=== PATIENT | female | born 1995 | race Caucasian/White ===

== ENCOUNTER 2022-03-08 07:35 | Outpatient (CLI) | payer OTHER, SELFPAY ==
[2022-03-09 09:57] LABS: Hematocrit 48.9 % (37.0-47.0); Hemoglobin 14.7 g/dL (12.0-15.0); Mean Corpuscular HGB Conc 30.1 g/dl (32-36); Mean Corpuscular Hemoglobin 29.8 pg (26-34); Mean Platelet Volume 10.8 fl (7.4-10.4); Platelet Count Result 307 k/mm3 (150-375); Red Blood Count 4.94 M/mm3 (4.2-5.4); Red Cell Distribution Width 13.6 % (11.5-14.5); White Blood Count 5.1 K/mm3 (4.5-10.0)
[2022-03-09 10:10] LABS: Alanine Aminotransferase 14 U/L (6-35); Albumin Level 4.8 g/dL (3.5-5.1); Alkaline Phosphatase 65 U/L (38-126); Anion Gap 8 mmol/L (8-16); Aspartate Amino Transferase 23 U/L (14-36); Bilirubin,Total 0.6 mg/dL (0.2-1.3); Blood Urea Nitrogen 14 mg/dL (7-17); Calcium 9.4 mg/dL (8.4-10.2); Carbon Dioxide 24 mmol/L (22-30); Chloride 106 mmol/L (98-107); Cholesterol 165 mg/dL (0-200); Estimated Glomerular Filt Rate > 60; Glucose 90 mg/dL (65-110); HDL Direct 71 mg/dL; Potassium 4.1 mmol/L (3.4-5.0); Sodium 138 mmol/L (137-145); Triglycerides 68 mg/dL (<150)
[2022-03-09 10:20] LABS: LDL Cholesterol Direct 71 mg/dL
[2022-03-09 15:47] LABS: Hemoglobin A1C 4.9 % (<5.7)
== END 2022-03-08 07:36 | disposition home or self-care (01) ==
PROVIDERS: PCP Family Medicine; Visit Provider Family Medicine
DX: Z00.00 Encounter for general adult medical examination without abnormal findings (principal); E28.2 Polycystic ovarian syndrome
CPT/HCPCS: 36415; 80053; 80061; 83036; 85027

== ENCOUNTER 2022-03-17 07:43 | Outpatient (CLI) | payer OTHER, SELFPAY ==
[2022-03-17 19:30] LABS: Hematocrit 44.4 % (37.0-47.0); Mean Corpuscular HGB Conc 31.5 g/dl (32-36); Mean Corpuscular Hemoglobin 29.8 pg (26-34); Mean Corpuscular Volume 94.5 fl (80-100); Mean Platelet Volume 11.2 fl (7.4-10.4); Platelet Count Result 268 k/mm3 (150-375); Red Cell Distribution Width 12.8 % (11.5-14.5); White Blood Count 5.2 K/mm3 (4.5-10.0)
[2022-03-22 09:56] LABS: DHEA-Sulfate 208 mcg/dL (18-391)
[2022-03-23 17:27] LABS: Testosterone Free 1.1 pg/mL (0.1-6.4); Testosterone Total 11 ng/dL (2-45)
== END 2022-03-17 07:44 | disposition home or self-care (01) ==
LOC: ANHBWCLAB 07:44
PROVIDERS: PCP Family Medicine; Visit Provider Family Medicine
DX: R71.8 Other abnormality of red blood cells (principal); E28.2 Polycystic ovarian syndrome
CPT/HCPCS: 36415; 82627; 84402; 84403; 85027

== ENCOUNTER 2022-05-05 13:49 | Emergency (ER) | payer OTHER, SELFPAY ==
[2022-05-05 14:06] VITALS: BP 146/93; PULSE 107; RESP 16; TEMP 36.8; O2SAT 100
--- NOTE | 2022-05-05 15:17 | ED.SKABFB ---
HPI - Skin/Abscess/Foreign Bdy General Chief complaint: Skin/Abscess/Foreign Body Stated complaint: rash on arm and leg Time Seen by Provider: 05/05/22 15:17 Source: patient and RN notes reviewed Mode of arrival: ambulatory Limitations: no limitations History of Present Illness HPI narrative: 27-year-old female presents with concern for itchy rash on her left leg and right arm. She reports she noticed the rash on Sunday and it has spread. She reports using [id number] poison contreras remedies without relief. She denies swollen lips, trouble breathing. She denies any known triggers. MD complaint: rash Related Data Allergies Allergy/AdvReac Type Severity Reaction Status Date / Time amoxicillin Allergy Rash/hives Verified 02/27/22 16:03 Review of Systems Review of Systems: CONSTITUTIONAL: Denies malaise, chills, sweats, or fever. EYES: Denies redness, or discharge. ENT: Denies rhinorrhea, congestion, swollen lips, swollen tongue CARDIOVASCULAR: Denies chest pain, palpitations, or edema. RESPIRATORY: Denies cough or dyspnea. GASTROINTESTINAL: Denies abdominal pain, nausea, vomiting SKIN: Reports itchy rash to the left leg, right arm MUSCULOSKELETAL: Denies joint painor myalgia. NEUROLOGIC: Denies headache. All systems reviewed & are unremarkable except as noted in HPI and below PMFSH Family History Family History (Updated 02/27/22 @ 16:14 by Tracey Jacobson MA) Mother Alcohol abuse Hypertension Heart disease Grandparent Alcohol abuse Cancer Diabetes mellitus Social History Social History (Updated 02/27/22 @ 16:18 by Tracey Jacobson MA) Smoking status: Never smoker Alcohol intake: current Alcohol use details: wine Beer on Occasion Substance use: never Substance use type: does not use Gender identity (if verbalized by the patient): Female Sexual Orientation (if Verbalized by the Patient): Straight or Heterosexual Agree to blood products: Yes Comments At time of signature, agree with nursing past medical, surgical, social and family history. There is no relevant family history pertinent to the presenting complaint Exam Narrative: GENERAL: Well-appearing, well-nourished, and in no acute distress. HEAD: Normocephalic, atraumatic. EYES: PERRLA, conjunctivae clear, and EOMI. ENT: Mucous membranes moist. Oropharynx without edema, erythema or lesions. NECK: Supple. No lymphadenopathy CHEST: Clear to auscultation. No respiratory distress. HEART: Regular rate and rhythm. SKIN: Warm, dry. Patches of erythematous papules noted to the posterior left leg and the right arm without vesicles or drainage noted NEURO: Alert and oriented x3. PSYCH: Normal mood and affect Course Course Emergency Course: Patient is aware of diagnosis, understands and agrees to treatment plan. Anticipatory guidance given. Patient agrees to follow-up as directed and is aware of reasons to seek care at the emergency department. Portions of this record may have been created with voice recognition software Level of Care: Express Care Visit Vital Signs Vital signs: Vital Signs Temperature 98.2 F 05/05/22 14:06 Pulse Rate 107 H 05/05/22 14:06 Respiratory Rate 16 05/05/22 14:06 Blood Pressure 146/93 H 05/05/22 14:06 Pulse Oximetry 100 05/05/22 14:06 Oxygen Delivery Room Air 05/05/22 14:06 Temperature 98.2 F 05/05/22 14:06 Pulse Rate 107 H 05/05/22 14:06 Respiratory Rate 16 05/05/22 14:06 Blood Pressure 146/93 H 05/05/22 14:06 Pulse Oximetry 100 05/05/22 14:06 Oxygen Delivery Room Air 05/05/22 14:06 Reviewed. MDM - Skin/Abscess/Foreign Bdy MDM Narrative Medical decision making narrative: Does not appear at this time to be erythema multiforme, bullous, SJS, TEN; no evidence at this time to suggest RMSF, endocarditis or Lyme disease; patient looks well, nontoxic and is tolerating oral intake; no neurologic signs or symptoms; no headache, photophobia or neck pain; afebri
== END 2022-05-05 15:27 | disposition home or self-care (01) ==
PROVIDERS: Emergency Provider Nurse Practitioner; PCP Family Medicine
DX: L25.9 Unspecified contact dermatitis, unspecified cause (principal)
CPT/HCPCS: 96372; 99213; G0463; J0171

== ENCOUNTER 2022-05-10 09:04 | Outpatient (CLI) | payer OTHER, SELFPAY ==
[2022-05-10 17:58] LABS: Hemoglobin A1C 4.9 % (<5.7)
[2022-05-10 18:20] LABS: Erythrocyte Sedimentation Rate 2 mm/hr (0-20)
== END 2022-05-10 09:05 | disposition home or self-care (01) ==
LOC: ANHBWCLAB 09:05
PROVIDERS: PCP Family Medicine; Visit Provider Family Medicine
DX: T14.8XXA Other injury of unspecified body region, initial encounter (principal); R73.09 Other abnormal glucose; I10 Essential (primary) hypertension; R21 Rash and other nonspecific skin eruption
CPT/HCPCS: 36415; 83036; 84443; 85652; 86036; 86038

== ENCOUNTER 2022-06-01 14:29 | Outpatient (CLI) | payer OTHER, SELFPAY ==
--- NOTE | 2022-06-01 14:32 | ECG_ITS ---
Measurements Intervals [facility] Rate: 92 P: 64 GA: 149 QRS: 60 QRSD: 91 T: 44 QT: 329 QTc: 408 Interpretive Statements SINUS RHYTHM BASELINE ARTIFACT POSSIBLE RIGHT VENTRICULAR CONDUCTION DELAY BORDERLINE ECG NO PREVIOUS ECG AVAILABLE FOR COMPARISON Electronically Signed On 06-01-2022 15:21:23 CDT by Candelario Galarza M.D.
== END 2022-06-01 14:30 | disposition home or self-care (01) ==
LOC: CHSCARD 14:31
PROVIDERS: PCP Family Medicine; Visit Provider Internal Medicine Cardiovascular Disease
DX: R00.0 Tachycardia, unspecified (principal)
CPT/HCPCS: 93005

== ENCOUNTER 2022-08-14 07:38 | Outpatient (CLI) | payer OTHER, SELFPAY ==
--- NOTE | ~2022-08-14 | CT_ITS ---
EXAMINATION: CT abdomen pelvis w con INDICATION: Worsening lower abdominal pain, rectal bleeding TECHNIQUE: Computed tomographic images of the abdomen and pelvis were obtained after the administrati on of 100 cc of Omnipaque 350 intravenous contrast. The dose-length product (DLP) was 501.54 mGy-cm. Automated exposure control and iterative reconstruction technique were employed. COMPARISON: None available FINDINGS: The lung bases are clear. The heart size is normal. The liver, spleen, pancreas, gallbladde r, and adrenal glands are normal. The kidneys are unremarkable. No pathologically enlarged abdominal or pelvic lymph nodes are identified. There is no free intraperitoneal gas or evidence of bowel obstr uction. There is a small volume of fluid in the endometrial canal. There is a 13 mm hypoattenuating a orquidea of the cervix. A corpus luteum is noted in the left ovary. The visualized osseous structures are unremarkable. IMPRESSION: 1. No CT correlate identified for rectal bleeding. 2. Fluid in the endometrial canal and hypoattenuating area of the cervix. Assuming negative test, findings likely reflect nabothian cyst and menstrual changes. Consider pelvic ultrasound. Reviewed, dictated and finalized at location A. IMPRESSION: 1. No CT correlate identified for rectal bleeding. 2. Fluid in the endometrial canal and hypoattenuating area of the cervix. Assum ing negative test, findings likely reflect nabothian cyst and menstru al changes. Consider pelvic ultrasound.
[2022-08-14 08:12] LABS: Hematocrit 42.6 % (37.0-47.0); Mean Corpuscular HGB Conc 32.9 g/dl (32-36); Mean Corpuscular Hemoglobin 29.9 pg (26-34); Mean Corpuscular Volume 90.8 fl (80-100); Mean Platelet Volume 10.2 fl (7.4-10.4); Platelet Count Result 306 k/mm3 (150-375); Red Blood Count 4.69 M/mm3 (4.2-5.4); Red Cell Distribution Width 12.2 % (11.5-14.5); White Blood Count 6.7 K/mm3 (4.5-10.0)
[2022-08-14 08:16] LABS: Estimated Glomerular Filt Rate > 60
[2022-08-14 08:23] LABS: Alanine Aminotransferase 17 U/L (6-35); Albumin Level 4.9 g/dL (3.5-5.1); Alkaline Phosphatase 57 U/L (38-126); Anion Gap 10 mmol/L (8-16); Aspartate Amino Transferase 22 U/L (14-36); Bilirubin,Total 0.8 mg/dL (0.2-1.3); Blood Urea Nitrogen 13 mg/dL (7-17); CRP < 0.5 mg/dL (<1.0); Calcium 9.6 mg/dL (8.4-10.2); Carbon Dioxide 23 mmol/L (22-30); Chloride 103 mmol/L (98-107); Estimated Glomerular Filt Rate > 60; Glucose 102 mg/dL (65-110); Potassium 3.9 mmol/L (3.4-5.0); Sodium 136 mmol/L (137-145)
== END 2022-08-14 07:39 | disposition home or self-care (01) ==
PROVIDERS: PCP Family Medicine; Referring Provider Nurse Practitioner; Visit Provider Nurse Practitioner Family
DX: R10.30 Lower abdominal pain, unspecified (principal); K62.89 Other specified diseases of anus and rectum
CPT/HCPCS: 36415; 74177; 80053; 85027; 86140; Q9967

== ENCOUNTER 2022-09-20 10:21 | Day surgery (SDC) | payer OTHER, SELFPAY ==
--- NOTE | 2022-09-14 13:12 | PC.NURSE ---
UNABLE TO GET AHOLD OF PT. MULTIPLE ATTEMPTS WITH VOICE MESSAGES HAVE BEEN LEFT FOR PT REGARDING PREOP INTERVIEW. PT CALLED AFTER HOURS AND LEFT A MESSAGE THAT SHE NEEDED TO BE CALLED EXACTLY AT [facility] . CALLED PT AT [facility] TODAY, NO ANSWER, VOICEMAIL LEFT AGAIN. WILL NOTIFY DR SHELDON OFFICE, UNABLE TO GET AHOLD OF PT.
--- NOTE | 2022-09-15 14:22 | SUR.PREOP ---
PRE-OPERATIVE [address] [address] 1. Report to the Surgery Center Waiting Room, the entrance is the first door on the right after passing through the automatic sliding doors, at time _1130 on date_09/20/22 . OR Time:_1300 . - You and your visitor will be asked to self-screen and do not enter if you have any COVID symptoms. - Two visitors over, age 16 and older, are allowed.? NO children visitors are allowed at this time. - Masking is based on community transmissions levels in [facility].? When the community transmission level is HIGH, masking will be required.? Signage will be posted indicating if masking is required the day of your procedure.? 2. Patients may have clear liquids (water, carbonated beverages, clear teas, apple juice) until 3 hours prior to surgery with a maximum of 20 ounces. - No food from midnight until time of surgery. - Infants may have breast milk until 4 hours before surgery, infant formula 6 hours prior to surgery. - Children will be allowed to drink immediately following surgery. If applicable, please bring a bottle or sippy cup to assist with drinking. Juice, water, soda, and popsicles are readily available. For infants on formula, please bring formula the day of surgery. Pacifiers are allowed. 3. Take the following medications with a SIP of water the morning of surgery: 1.__Lisinopril 2. 3. Medications to discontinue per physician order: 1.__n/a date to discontinue: 4. No make-up, nail namibian, hairspray, perfume, deodorant, or body powder the day of surgery. No jewelry (including any body piercings) or valuables the day of surgery. Please take a shower or bath the night before, or the morning of, surgery with an antibacterial soap. Wear comfortable, loose fitting clothing. Children are encouraged to wear pajamas. - Jewelry must be removed prior to entering the operating room. Rings and piercings that are not removed will be cut off. The center will not accept responsibility for valuables. Please leave all valuables, including medications, at home the day of surgery. 5. When going home after surgery, a licensed rolloff truck driver must drive you home. NO public transportation without another adult. We recommend someone to stay with you, no alcoholic beverages, driving or important decision making for 24 hours after surgery. For pediatric surgeries, we recommend two adults to accompany a child home. (Only one will be allowed into the building with the patient) 6. If you or anyone in your household have experienced Covid symptoms in the past week, please notify your surgeon or surgery center at phone number below for possible testing. 7. Follow any additional instructions given by your physician. Telephone instructions given to:_patient and asked if any additional questions and then verbalized understanding. Patient advised to call surgeon office or the surgery center at [phone] if any additional questions.
[2022-09-15 14:26] VITALS: BMI 28.3
--- NOTE | 2022-09-20 09:43 | P.PNAN_ITS ---
Anes - Initial Pre Proc Eval Procedure: Operation Date: 09/20/22 13:00 Proposed Procedures p Diagnostic Colonoscopy - Ander Gloria MD Date/Time: 09/20/22 09:43 Surgeon: Ander Gloria MD Pre Op Diagnosis: Melena and Rectal Pain Patient Data Age: 27 Gender: F Height: 1.63 m Weight: 74.843 kg Allergies Allergy/AdvReac Type Severity Reaction Status Date / Time amoxicillin Allergy Rash/hives Verified 09/15/22 14:32 Home Medications Medication Instructions Recorded Confirmed Type lisinopril 20 mg tablet 20 mg PO DAILY #90 tabs 07/29/22 09/15/22 Rx prednisone 20 mg tablet 40 mg PO DAILY PRN Menstral period 09/15/22 09/15/22 History Patient hx anesthesia problems: none Family hx anesthesia problems: none Results Review: All pre-operative results and documents have been reviewed as part of the pre- operative evaluation. [facility] Past Medical History Medical History (Updated 09/20/22 @ 09:44 by Jose Alejandro Ervin DO) External bleeding hemorrhoids HTN (hypertension) PCOS (polycystic ovarian syndrome) Surgical History Surgical History (Updated 09/20/22 @ 09:44 by Jose Alejandro Ervin DO) History of Family History Family History Mother Alcohol abuse Hypertension Heart disease Grandparent Alcohol abuse Cancer Diabetes mellitus Social History Social History Smoking status: Never smoker Alcohol intake: current Alcohol use details: socially Substance use: never Substance use type: does not use Living arrangements: with family Gender identity (if verbalized by the patient): Female Sexual Orientation (if Verbalized by the Patient): Straight or Heterosexual Spiritual care concerns: No Agree to blood products: Yes Anes - Eval Final PreProcedure Day of Procedure 09/20/22 09:43 Patient weight: overweight Heart: regular rate and rhythm Lungs: clear to auscultation Airway: Mallampati scale class II Neurological: alert and oriented Last oral intake: >/= 8 hours ASA classification: II Emergent: no Anesthetic plan: proceed Anesthesia type and monitoring: general GIVS and standard monitoring Results Review: All pre-operative results and documents have been reviewed as part of the pre- operative evaluation. Informed Consent: The patient's anesthetic plan and its attendant risks and benefits were discussed with the patient/family/POA. Questions were solicited and answers provided to the satisfaction of the patient/family/POA.
[2022-09-20 10:40] VITALS: BP 127/85; PULSE 117; RESP 20; TEMP 37.1; O2SAT 100
[2022-09-20] MEDS: LACTATED RINGERS 1,000 ML 150 ML IV CONT (11:34)
--- NOTE | 2022-09-20 11:45 | PM.HPGS ---
History of Present Illness History of Present Illness Consent: Risks, benefits, and alternatives have been discussed and questions answered. Patient agrees to proceed with procedure. Chief complaint: Melena and Rectal Pain Narrative: Shira Hudson is a 27 year old female with intermittent rectal pain and blood in stools Review of Systems Constitutional: Constitutional: Denies headache(s) and Denies weakness Eyes: Eyes: Denies blurry vision ENT: Reports Normal hearing present, Denies headache(s) and Denies neck pain Cardiovascular: Cardiovascular: Denies chest pain and Denies dyspnea Respiratory: Respiratory: Denies dyspnea Gastrointestinal: Gastrointestinal: Reports no additional gastrointestinal complaints Genitourinary: Genitourinary: Denies dysuria Musculoskeletal: Musculoskeletal: Denies neck pain Integumentary/Breasts: Skin/Breast: Denies dry skin Neurologic: Reports Normal hearing present, Denies headache(s) and Denies weakness Psychiatric: Psychiatric: Denies anxiety Endocrine: Endocrine: Denies change in body appearance Hematologic/Lymphatic: Hematologic/Lymphatic: Denies easy bleeding Allergic/Immunologic: Allergic/Immunologic: Denies urticaria PMFSH Past Medical History Medical History (Updated 09/20/22 @ 09:44 by Jose Alejandro Ervin DO) External bleeding hemorrhoids HTN (hypertension) PCOS (polycystic ovarian syndrome) Surgical History Surgical History (Updated 09/20/22 @ 09:44 by Jose Alejandro Ervin DO) History of Family History Family History Mother Alcohol abuse Hypertension Heart disease Grandparent Alcohol abuse Cancer Diabetes mellitus Social History Social History Smoking status: Never smoker Alcohol intake: current Alcohol use details: socially Substance use: never Substance use type: does not use Living arrangements: with family Gender identity (if verbalized by the patient): Female Sexual Orientation (if Verbalized by the Patient): Straight or Heterosexual Spiritual care concerns: No Agree to blood products: Yes Meds Home Medications and Allergies Home Medications Medication Instructions Recorded Confirmed Type lisinopril 20 mg tablet 20 mg PO DAILY #90 tabs 07/29/22 09/20/22 Rx prednisone 20 mg tablet 40 mg PO DAILY PRN Menstral period 09/15/22 09/20/22 History Allergies Allergy/AdvReac Type Severity Reaction Status Date / Time amoxicillin Allergy Rash/hives Verified 09/20/22 10:53 Vital Signs Vital Signs - 24 hr 09/20/22 10:40 Temperature 98.7 F Pulse Rate 117 H Respiratory Rate 20 Blood Pressure 127/85 Pulse Oximetry 100 Oxygen Delivery Room Air Exam Const: General: comfortable and no acute distress HENMT: Face/Nose/Sinus: Normal nares present Eyes: General: appearance normal, both eyes and all related structures Neck: Neck: no JVD Resp: Auscultation: clear to auscultation bilaterally Cardio: Rate: regular rate Rhythm: regular rhythm GI: Inspection: non-distended GI Palp: Yes Soft to palpation Skin: General skin exam: normal color Neuro: General: gait normal Speech: normal speech Extrem: General: normal to inspection Psych: Mental Status: mental status grossly normal Assessment and Plan Assessment and plan (1) Rectal pain: Code(s): K62.89 - Other specified diseases of anus and rectum Status: Acute Assessment and Plan: colonoscopy, probably perianal ? anal fissure
[2022-09-20 12:10] VITALS: BP 92/66; PULSE 97; RESP 16; O2SAT 100
[2022-09-20 12:20] VITALS: BP 105/65; PULSE 94; RESP 16; O2SAT 99
[2022-09-20 12:30] VITALS: BP 98/68; PULSE 98; RESP 16
--- NOTE | 2022-09-20 12:31 | SUR.PHASEII ---
PT AWAKE AND ALERT. DENIES PAIN. DRINKING WATER.
--- NOTE | 2022-09-20 12:53 | SUR.PHASEII ---
1245; PT AND SPOUSE ASKING TO SPEAK TO DR SERVIN. DR SERVIN INTO ROOM.
--- NOTE | 2022-09-20 13:22 | WPDANESPN ---
Anes - Prog Note Post-Op Date/Time: 09/20/22 13:22 Cardiovascular status: normal Respiratory status: normal Airway patency: baseline Mental status: baseline Post-Op hydration status: normal Vital Signs: Last Vital Signs Temp 37.1 C 09/20/22 10:40 Pulse 98 09/20/22 12:30 Resp 16 09/20/22 12:30 BP 98/68 L 09/20/22 12:30 Pulse Ox 99 09/20/22 12:20 O2 Del Method Room Air 09/20/22 12:30 Pain Score (VAS): 0 I/O: Intake & Output 09/19/22 09/20/22 09/20/22 23:59 07:59 15:59 Intake Total 400 Balance 400 Post-procedural complaints: none Patient Feedback: Patient satisfied with anesthetic care. Other Findings: Patient vital signs back to baseline. Patient denies nausea and vomiting. Patient's pain under control. Patient OK for discharge.
== END 2022-09-20 12:53 | disposition home or self-care (01) ==
PROVIDERS: PCP Family Medicine; Visit Provider Internal Medicine Gastroenterology
PROC: 0DJD8ZZ Inspection of Lower Intestinal Tract, Via Natural or Artificial Opening Endoscopic (ICD-10-PCS; CPT 45378; principal; 2022-09-20 13:00)
DX: K62.89 Other specified diseases of anus and rectum (principal)
CPT/HCPCS: 45378

== ENCOUNTER 2023-02-04 15:32 | Emergency (ER) | payer OTHER, SELFPAY ==
[2023-02-04 16:05] VITALS: BP 125/79; PULSE 107; RESP 16; TEMP 36.9; O2SAT 100
--- NOTE | 2023-02-04 16:27 | ED.GENADULT ---
HPI - General Adult General Chief complaint: Eye Problems Stated complaint: poss pink eye Source: patient Mode of arrival: ambulatory Limitations: no limitations History of Present Illness HPI narrative: Patient presents for evaluation of left eye symptoms that started this morning. Symptoms include thick mucopurulent discharge from the left eye, crusting, redness, blurred vision. 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 She does not were contacts. No recent sick contacts to her knowledge. Denies any other visual disturbance. Related Data Allergies Allergy/AdvReac Type Severity Reaction Status Date / Time amoxicillin Allergy Rash/hives Verified 02/04/23 16:04 Review of Systems Review of Systems: CONSTITUTIONAL: Denies fever, chills, or sweats. EYES: Reports redness to the left eye with associated mucopurulent discharge, crusting, blurred vision on left. ENT: Denies rhinorrhea, congestion, sore throat, or otalgia. CARDIOVASCULAR: Denies chest pain, palpitations, or edema. RESPIRATORY: Denies cough or dyspnea. GASTROINTESTINAL: Denies abdominal pain, nausea, vomiting, or diarrhea. GENITOURINARY: Denies dysuria or hematuria. SKIN: Denies rash or itching. MUSCULOSKELETAL: Denies back pain, joint pain, or myalgia. NEUROLOGIC: Denies headache, numbness, dizziness, or weakness. PSYCHIATRIC: Denies anxiety or depression. [facility] Past Medical History Medical History External bleeding hemorrhoids HTN (hypertension) PCOS (polycystic ovarian syndrome) Surgical History Surgical History History of Family History Family History Mother Alcohol abuse Hypertension Heart disease Grandparent Alcohol abuse Cancer Diabetes mellitus Social History Social History Smoking status: Never smoker Alcohol intake: current Alcohol use details: socially Substance use: never Substance use type: does not use Living arrangements: with family Gender identity (if verbalized by the patient): Female Sexual Orientation (if Verbalized by the Patient): Straight or Heterosexual Spiritual care concerns: No Agree to blood products: Yes Exam Narrative: GENERAL: Well-appearing, well-nourished, and in no acute distress. HEAD: Normocephalic, atraumatic. EYES: Extraocular movements intact. Left conjunctival injection with thick yellow discharge noted on eyelashes ENT: Nares clear, no rhinorrhea or epistaxis. Mucous membranes moist. Oropharynx without tonsillar hypertrophy exudate or other lesions. Bilateral TMs pearly cesar nonbulging NECK: Supple. No adenopathy or masses. No carotid bruits or JVD CHEST: Clear to auscultation. No respiratory distress. No wheezes rales or rhonchi HEART: Regular rate and rhythm. No murmur heard. Normal peripheral pulses. ABDOMEN: Soft, nontender, nondistended, normal active bowel sounds. EXTREMITIES: Normal range of motion. No edema. SKIN: Warm, dry, no rash. NEURO: No focal deficits. Alert and oriented x3. PSYCH: Normal mood and affect. Course Course Emergency Course: This is a 27-year-old female who presented for evaluation of left eye symptoms. Exam is consistent with bacterial conjunctivitis. Will discharge with erythromycin. Instructed on hand hygiene. Follow up with primary provider. Go to the ER for worsening symptoms. Patient in agreement plan of care Level of Care: Express Care Visit Vital Signs Vital signs: Vital Signs Temperature 36.9 C 02/04/23 16:05 Pulse Rate 107 H 02/04/23 16:05 Respiratory Rate 16 02/04/23 16:05 Blood Pressure 125/79 02/04/23 16:05 Pulse Oximetry 100 02/04/23 16:05 Oxygen Delivery Room Air 02/04/23 16:05 Temperature 36.9 C 02/04/23 16:05 Pulse Rate 107 H
== END 2023-02-04 16:33 | disposition home or self-care (01) ==
PROVIDERS: Emergency Provider Nurse Practitioner; PCP Family Medicine
DX: H10.9 Unspecified conjunctivitis (principal); I10 Essential (primary) hypertension
CPT/HCPCS: 99213; G0463

== ENCOUNTER 2023-09-07 08:48 | Outpatient (CLI) | payer OTHER, SELFPAY ==
[2023-09-07 18:32] LABS: Basophils Absolute Auto 0.1 K/mm3 (0.0-0.1); Basophils Percent Auto 1.3 % (0.2-1.2); Eosinophils Absolute Auto 0.1 K/mm3 (0-0.3); Eosinophils Percent Auto 2.5 % (0-4.4); Hematocrit 44.2 % (37.0-47.0); Hemoglobin 14.6 g/dL (12.0-15.0); Immature Granulocyte Absolute 0.02 K/mm3 (0.00-0.031); Immature Granulocyte Percent A 0.4 % (0-0.5); Lymphocytes Absolute Auto 1.52 K/mm3 (0.9-3.2); Lymphocytes Percent Auto 32.2 % (18.3-44.2); Mean Corpuscular Hemoglobin 30.7 pg (26-34); Mean Corpuscular Volume 93.1 fl (80-100); Mean Platelet Volume 10.5 fl (7.4-10.4); Monocytes Absolute Auto 0.4 K/mm3 (0.1-0.6); Monocytes Percent Auto 7.8 % (2.6-8.5); Neutrophils Absolute Auto 2.6 K/mm3 (1.3-6.7); Neutrophils Percent Auto 55.8 % (45.5-73.1); Platelet Count Result 322 k/mm3 (150-375); Red Blood Count 4.75 M/mm3 (4.2-5.4); Red Cell Distribution Width 12.4 % (11.5-14.5); White Blood Count 4.7 K/mm3 (4.5-10.0)
[2023-09-07 18:46] LABS: Alanine Aminotransferase 15 U/L (6-35); Albumin Level 4.9 g/dL (3.5-5.1); Alkaline Phosphatase 67 U/L (38-126); Anion Gap 11 mmol/L (8-16); Aspartate Amino Transferase 45 U/L (14-36); Bilirubin,Total 0.9 mg/dL (0.2-1.3); Blood Urea Nitrogen 12 mg/dL (7-17); Calcium 9.9 mg/dL (8.4-10.2); Carbon Dioxide 25 mmol/L (22-30); Chloride 103 mmol/L (98-107); Cholesterol 175 mg/dL (0-200); Estimated Glomerular Filt Rate > 60; Glucose 77 mg/dL (65-110); HDL Direct 57 mg/dL; Potassium 4.2 mmol/L (3.4-5.0); Sodium 139 mmol/L (137-145); Triglycerides 69 mg/dL (<150)
[2023-09-07 18:56] LABS: LDL Cholesterol Direct 93 mg/dL
[2023-09-07 19:18] LABS: Thyroid Stimulating Hormone Reflex 0.404 uIU/mL (0.465-4.68)
[2023-09-07 20:01] LABS: Free T4 Free Thyroxine Reflex 1.16 ng/dL (0.78-2.19)
[2023-09-07 21:03] LABS: Total Triiodothyronine (T3) 1.22 NG/ML (0.97-1.69)
== END 2023-09-07 08:49 | disposition home or self-care (01) ==
LOC: ANHBWCLAB 08:50
PROVIDERS: PCP Nurse Practitioner Adult Health; Visit Provider Nurse Practitioner Adult Health
DX: I10 Essential (primary) hypertension (principal)
CPT/HCPCS: 36415; 80053; 80061; 84439; 84443; 84480; 85025

== ENCOUNTER 2023-10-16 14:55 | Outpatient (CLI) | payer OTHER, SELFPAY ==
[2023-10-20 05:22] LABS: Thyroid Peroxidase Antibodies <1 IU/mL (<9)
== END 2023-10-16 14:56 | disposition home or self-care (01) ==
LOC: ANHBWCLAB 14:56
PROVIDERS: PCP Nurse Practitioner Adult Health; Visit Provider Nurse Practitioner Adult Health
DX: R79.89 Other specified abnormal findings of blood chemistry (principal)
CPT/HCPCS: 36415; 86376

== ENCOUNTER 2024-02-11 15:35 | Outpatient (CLI) | payer OTHER, SELFPAY ==
--- NOTE | ~2024-02-11 | CT_ITS ---
EXAMINATION: CT abdomen pelvis wo con DATE: 02/11/2024 15:56 INDICATION: Unspecified abdominal pain. TECHNIQUE: Computed tomography (CT) of the abdomen and pelvis was performed without intravenous contr ast. Automated exposure control and iterative reconstruction technique were employed. The dose-length product was 662.57 mGy-cm. COMPARISON: CT abdomen and pelvis 08/14/2022 FINDINGS: The visualized portions of the lung bases are clear without pneumonia or pleural effusion. The heart size is normal. No pericardial effusion. The liver, gallbladder, spleen, pancreas, adrenal glands, and kidneys are normal. There is no urolithiasis. There are no dilated loops of bowel. The ap pendix is normal. There are no pathologically enlarged lymph nodes. There is no free intraperitoneal fluid. There are chronic bilateral L5 pars defects. There is mild thoracic and lumbar spondylosis. IMPRESSION: 1. No etiology for the patient's symptoms. Reviewed, dictated and finalized at location E.
== END 2024-02-11 15:36 ==
PROVIDERS: PCP Internal Medicine Gastroenterology; Visit Provider Nurse Practitioner Adult Health
DX: R10.9 Unspecified abdominal pain (principal)
CPT/HCPCS: 74176

== ENCOUNTER 2024-02-12 16:04 | Outpatient (CLI) | payer OTHER, SELFPAY ==
[2024-02-12 19:01] LABS: Hematocrit 40.5 % (37.0-47.0); Hemoglobin 13.5 g/dL (12.0-15.0); Mean Corpuscular HGB Conc 33.3 g/dl (32-36); Mean Corpuscular Hemoglobin 30.1 pg (26-34); Mean Corpuscular Volume 90.4 fl (80-100); Mean Platelet Volume 10.7 fl (7.4-10.4); Platelet Count Result 315 k/mm3 (150-375); Red Blood Count 4.48 M/mm3 (4.2-5.4); Red Cell Distribution Width 12.1 % (11.5-14.5); White Blood Count 6.9 K/mm3 (4.5-10.0)
[2024-02-12 19:29] LABS: Alanine Aminotransferase 15 U/L (6-35); Albumin Level 4.8 g/dL (3.5-5.1); Alkaline Phosphatase 62 U/L (38-126); Anion Gap 8 mmol/L (4-12); Aspartate Amino Transferase 48 U/L (14-36); Bilirubin,Total 0.5 mg/dL (0.2-1.3); Blood Urea Nitrogen 14 mg/dL (7-17); Calcium 9.6 mg/dL (8.4-10.2); Carbon Dioxide 26 mmol/L (22-30); Chloride 103 mmol/L (98-107); Estimated Glomerular Filt Rate > 60; Glucose 94 mg/dL (65-110); Potassium 4.1 mmol/L (3.4-5.0); Sodium 137 mmol/L (137-145)
[2024-02-12 19:55] LABS: Thyroid Stimulating Hormone 0.973 uIU/mL (0.465-4.680)
[2024-02-14 08:13] LABS: Thyroid Peroxidase Antibodies <1 IU/mL (<9)
== END 2024-02-12 16:05 | disposition home or self-care (01) ==
LOC: ANHBWCLAB 16:05
PROVIDERS: PCP Nurse Practitioner Adult Health; Visit Provider Nurse Practitioner Adult Health
DX: Z13.9 Encounter for screening, unspecified (principal)
CPT/HCPCS: 36415; 80053; 84439; 84443; 85027; 86376

== ENCOUNTER 2024-03-14 00:27 | Day surgery (SDC) | payer OTHER, SELFPAY ==
[2024-03-14 11:45] VITALS: BP 122/88; PULSE 117; RESP 18; TEMP 36.8; O2SAT 100
[2024-03-14] MEDS: LACTATED RINGERS 1,000 ML 150 ML IV CONT (11:55)
--- NOTE | 2024-03-14 12:06 | P.PNAN_ITS ---
Anes - Initial Pre Proc Eval Procedure: Operation Date: 03/14/24 14:00 Proposed Procedures p Flexible Sigmoidoscopy - Ander Gloria MD s [facility] Hemorrhoid Treatment - Ander Gloria MD Date/Time: 03/14/24 12:06 Surgeon: Ander Gloria MD Pre Op Diagnosis: Other diseases of anus/rectum, Hemorrhoidal skin t Patient Data Age: 29 Gender: F Height: 1.63 m Weight: 76.5 kg Last Vital Signs Temp 98.3 F 03/14/24 11:45 Pulse 117 H 03/14/24 11:45 Resp 18 03/14/24 11:45 BP 122/88 03/14/24 11:45 Pulse Ox 100 03/14/24 11:45 O2 Del Method Room Air 03/14/24 11:45 Allergies Allergy/AdvReac Type Severity Reaction Status Date / Time amoxicillin Allergy Rash/hives Verified 03/14/24 11:44 Home Medications Medication Instructions Recorded Confirmed Type lisinopril 20 mg tablet See Rx Instructions .Route 01/21/24 03/11/24 Rx .COMPLEX #90 tabs Patient hx anesthesia problems: none Family hx anesthesia problems: none Results Review: All pre-operative results and documents have been reviewed as part of the pre- operative evaluation. [facility] Past Medical History Medical History (Updated 02/12/24 @ 15:54 by Serena Gallegos APRN) External bleeding hemorrhoids Hemorrhoidal skin tag HTN (hypertension) PCOS (polycystic ovarian syndrome) Surgical History Surgical History History of Family History Family History Mother Alcohol abuse Hypertension Heart disease Grandparent Alcohol abuse Cancer Diabetes mellitus Social History Social History Smoking status: Never smoker Alcohol intake: current Alcohol use details: socially Substance use: never Substance use type: does not use Lack of Transportation: No Lack of Food: Never True Current Housing: I Have Housing Concerned About Future Housing: No Difficulty Paying Gas/Electric Bills: No Difficulty Paying for Meds: No Currently Unemployed: No Education: Bachelor's Degree Difficulty w/ Childcare or Family Care: No Living arrangements: with family Gender identity (if verbalized by the patient): Female Sexual Orientation (if Verbalized by the Patient): Straight or Heterosexual Spiritual care concerns: No Agree to blood products: Yes Anes - Eval Final PreProcedure Day of Procedure 03/14/24 12:06 Patient weight: normal Heart: regular rate and rhythm Lungs: clear to auscultation Airway: Mallampati scale class II Neurological: alert and oriented Last oral intake: >/= 8 hours ASA classification: II Emergent: no Anesthetic plan: proceed Anesthesia type and monitoring: general GIVS and standard monitoring Results Review: All pre-operative results and documents have been reviewed as part of the pre- operative evaluation. Informed Consent: The patient's anesthetic plan and its attendant risks and benefits were discu ssed with the patient/family/POA. Questions were solicited and answers provided to the satisfaction of the patient/family/POA.
--- NOTE | 2024-03-14 12:37 | PM.HPGS ---
History of Present Illness History of Present Illness Consent: Risks, benefits, and alternatives have been discussed and questions answered. Patient agrees to proceed with procedure. Chief complaint: Other diseases of anus/rectum, Hemorrhoidal skin t Narrative: Shira Hudson is a 29 year old female here for sigmoidoscopy, almost daily rectal/anal discomfort since started without any trigger, had colonoscopy that year that was normal other than small size internal hemorrhoids and skin tags, she tried topical OTC for hemorrhoids no relief, had CT scan that was negative, she has seen ob-bet taker, this is affecting her life at work and with , denies bleeding, she has burning sensation left side of anus. She is also planning to see CRS because pain has not gone away. Review of Systems Review of Systems: All systems reviewed & are unremarkable except as noted in HPI and below PMFSH Past Medical History Medical History (Updated 02/12/24 @ 15:54 by Serena Gallegos APRN) External bleeding hemorrhoids Hemorrhoidal skin tag HTN (hypertension) PCOS (polycystic ovarian syndrome) Surgical History Surgical History History of Family History Family History Mother Alcohol abuse Hypertension Heart disease Grandparent Alcohol abuse Cancer Diabetes mellitus Social History Social History Smoking status: Never smoker Alcohol intake: current Alcohol use details: socially Substance use: never Substance use type: does not use Lack of Transportation: No Lack of Food: Never True Current Housing: I Have Housing Concerned About Future Housing: No Difficulty Paying Gas/Electric Bills: No Difficulty Paying for Meds: No Currently Unemployed: No Education: Bachelor's Degree Difficulty w/ Childcare or Family Care: No Living arrangements: with family Gender identity (if verbalized by the patient): Female Sexual Orientation (if Verbalized by the Patient): Straight or Heterosexual Spiritual care concerns: No Agree to blood products: Yes Meds Home Medications and Allergies Home Medications Medication Instructions Recorded Confirmed Type lisinopril 20 mg tablet See Rx Instructions .Route 01/21/24 03/11/24 Rx .COMPLEX #90 tabs Allergies Allergy/AdvReac Type Severity Reaction Status Date / Time amoxicillin Allergy Rash/hives Verified 03/14/24 11:44 Vital Signs Vital Signs - 24 hr 03/14/24 11:45 Temperature 98.3 F Pulse Rate 117 H Respiratory Rate 18 Blood Pressure 122/88 Pulse Oximetry 100 Oxygen Delivery Room Air Exam Const: General: comfortable and no acute distress HENMT: Face/Nose/Sinus: Normal nares present Eyes: General: appearance normal, both eyes and all related structures Neck: Neck: no JVD Resp: Auscultation: clear to auscultation bilaterally Cardio: Rate: regular rate Rhythm: regular rhythm GI: Inspection: non-distended GI Palp: Yes Soft to palpation Skin: General skin exam: normal color Neuro: General: gait normal Speech: normal speech Extrem: General: normal to inspection Psych: Mental Status: mental status grossly normal Assessment and Plan Assessment and plan (1) Skin tag of anus: Code(s): K64.4 - Residual hemorrhoidal skin tags Status: Acute (2) Anal pain: Code(s): K62.89 - Other specified diseases of anus and rectum Status: Acute Assessment and Plan: sigmoidoscopy, if I find internal hemorrhoid then will treat with IRC
[2024-03-14 12:54] VITALS: BP 154/103; PULSE 94; RESP 18; O2SAT 99
--- NOTE | 2024-03-14 12:56 | W.PM.PROC2 ---
Procedure Note - Detailed Date of Procedure 03/14/24 Pre-op Diagnosis Hemorrhoids Post-op Diagnosis Same Procedure Performed irc of internal hemorrhoid Surgeon Ander Gloria MD Anesthesia MAC (also had sigmoidoscopy) Findings noted skin tags and grade II internal hemorrhoid, no fissure, no lesion, no bleeding. Description of Procedure used anoscope and found grade II internal hemorrhoid then introduced IRC probe and hemorrhoid treated x7 at 1.5sec
[2024-03-14 13:04] VITALS: BP 109/73; PULSE 86; RESP 16; O2SAT 100
[2024-03-14 13:14] VITALS: BP 108/63; PULSE 89; RESP 25; O2SAT 98
== END 2024-03-14 13:24 | disposition home or self-care (01) ==
PROVIDERS: PCP Nurse Practitioner Adult Health; Visit Provider Internal Medicine Gastroenterology
PROC: 0DJD8ZZ Inspection of Lower Intestinal Tract, Via Natural or Artificial Opening Endoscopic (ICD-10-PCS; CPT 45330; principal; 2024-03-14 14:00)
PROC: (CPT 46930; 2024-03-14 14:00)
DX: K64.1 Second degree hemorrhoids (principal); K64.8 Other hemorrhoids; K64.4 Residual hemorrhoidal skin tags; I10 Essential (primary) hypertension; E28.2 Polycystic ovarian syndrome
CPT/HCPCS: 46930; 45330; J2704; J7120

== ENCOUNTER 2024-09-08 09:05 | Outpatient (CLI) | payer OTHER, SELFPAY ==
[2024-09-08 19:17] LABS: Alanine Aminotransferase 13 U/L (6-35); Albumin Level 4.2 g/dL (3.5-5.1); Alkaline Phosphatase 50 U/L (38-126); Anion Gap 3 mmol/L (4-12); Aspartate Amino Transferase 74 U/L (14-36); Blood Urea Nitrogen 13 mg/dL (7-17); Calcium 9.3 mg/dL (8.4-10.2); Carbon Dioxide 30 mmol/L (22-30); Chloride 104 mmol/L (98-107); Estimated Glomerular Filt Rate > 60; Glucose 84 mg/dL (65-110); Potassium 4.3 mmol/L (3.4-5.0); Sodium 137 mmol/L (137-145)
== END 2024-09-08 09:06 | disposition home or self-care (01) ==
LOC: ANHBWCLAB 09:06
PROVIDERS: PCP Nurse Practitioner Adult Health; Visit Provider Nurse Practitioner Adult Health
DX: I10 Essential (primary) hypertension (principal)
CPT/HCPCS: 36415; 80053

== ENCOUNTER 2024-09-22 09:16 | Outpatient (CLI) | payer OTHER, SELFPAY ==
--- NOTE | ~2024-09-22 | US_ITS ---
Limited ABDOMINAL ULTRASOUND (Doppler ultrasound interrogation techniques used as needed for this exa m.) Ordering provider: Serena Gallegos APRN History: . R74.8 - Abnormal levels of other serum enzymes . Comparison: None. FINDINGS: PANCREAS: Normal echotexture and size. PORTAL VEIN: Hepatopedal flow demonstrated. LIVER: Normal size and echotexture. No focal hepatic lesions or perihepatic fluid collections are zeke ntified. BILIARY DUCTS: No intra or extrahepatic biliary dilation. Common bile duct measures 3 mm in diameter which is normal for patient's age. GALLBLADDER: Normal. No stones, sludge, gallbladder wall thickening or pericholecystic fluid. The wal l thickness is 0.27 cm. Negative sonographic Kumari's sign. Abdominal aorta: Normal. IVC: Normal. FREE FLUID: None visualized within the upper abdomen. IMPRESSION: Normal limited abdominal ultrasound. Reviewed, dictated and finalized at location A. D/OSTOMY CLINICAL NURSE SPECIALIST
== END 2024-09-22 09:17 | disposition home or self-care (01) ==
PROVIDERS: PCP Nurse Practitioner Adult Health; Visit Provider Nurse Practitioner Adult Health
DX: R74.8 Abnormal levels of other serum enzymes (principal)
CPT/HCPCS: 76705

== ENCOUNTER 2025-03-31 08:40 | Outpatient (CLI) | payer OTHER, SELFPAY ==
--- OUTSIDE RECORDS SUMMARY | 2025-03-31 08:44 | XMS_ITS | Clinical Summary ---
Author Organization [facility] Address [address] [place] [address] Phone Care Team Providers Care Community Development Worker Name Role Phone Malkarma Serena MARGY Primary Care Provider [phone] Negar Carmona Unavailable [phone] Ander Sadler MD Unavailable + Allergies Active Allergy Reactions Criticality Noted Date Comments Amoxicillin Rash Reaction: Rash, Medications lisinopriL (PRINIVIL,ZESTR IL) 20 mg tablet Take 1 tablet (20 mg total) by mouth daily Active white petrolatum (bulk)-dilTIAZe m (bulk) Diltiazem 2% ointment. Apply pea size amount to anus using gloved finger 2 times daily for anal fissure. 45 g 1 04/11/20 24 Active lidocaine (XYLOCAINE) 5 % ointment Apply to perianal area as needed pain. Up to 4 times daily. 30 g 1 04/11/20 24 Active neomycin-hydroc ortisone rectal suppository 15-50 mg Insert 1 suppository per rectum nightly x 2 weeks for anal fissure. Repeat additional 2 weeks if persistent symptoms. 30 suppository 1 07/07/20 24 Active Active Problems No known active problems Immunizations Immunization Administration Dates Next Due HPV, Quadrivalent 10/01/2007,05/28/2007,03/28/20 07 Hep B, Adolescent or Pediatric 1993,1992,1993 Influenza, Split 09/24/2012 MMR 03/24/1998,05/16/1994 Meningococcal Polysaccharide (Menomune) 10/01/20 07 Tdap 03/28/2007 Varicella 05/28/2007,04/24/1995 Surgical History Surgery Date Site/Laterality Comments OTHER SURGICAL HISTORY Rectal bleeding/constipation: EGD -- Adriano @ [facility] COLONOSCOPY 10/29/2021 - 10/28/2022 FLEXIBLE SIGMOIDOSCOPY 02/27/2024 - 03/28/2024 Medical History Medical History Date Comments Hx Other Medical 2011 Rectal bleeding /constipation; Outcome: free of disease Hypertension PCOS (polycystic ovarian syndrome) Family History Medical History Relation Name Comments Other Father adopted; Alcohol abuse Maternal Grandfather Alcoho lism; Cancer Maternal Grandmother Cancer, unknown; Diabetes Maternal Grandmother Diabete s mellitus; Hypertension Maternal Grandmother Hyperte nsion; Hypertension Mother Hypertension; Relation Name Status Comments Father Maternal Grandfather Maternal Grandmother Mother Social History Tobacco Use Types Packs/Day Years Used Date Smoking Tobacco: Never Smokeless Tobacco: Never Tobacco Cessation:Counseling Given: Not Answered Alcohol Use Standard Drinks/Week Comments No 0 (1 standard drink = 0.6 oz pur e alcohol) AUDIT-C Answer Date Recorded Q1: How often do you have a drink containing alcohol? Never 04/11/2024 Q2: How many drinks containi ng alcohol do you have on a typical day when you are drinking? Patient does not drink Q3: How often do you have si x or more drinks on one occasion? 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 Gender Identity Not on file Sexual Orientation Not on file Obstetrics History Last Filed Vital Signs Vital Sign Reading Time Taken Comments Blood Pressure 122/83 05/13/2024 2:56 PM CDT Pulse 77 05/13/2024 2:56 PM CDT Temperature - - Respiratory Rate - - Oxygen Saturation 99% 04/11/2024 9:09 AM CDT Inhaled Oxygen Concentration - - Weight 80.7 kg (178 lb) 05/13/2024 2:56 PM CDT Height 162.6 cm (5' 4) 05/13/2024 2:56 PM CDT Body Mass Index 30.55 05/13/2024 2:56 PM CDT Plan of Treatment Health Maintenance Due Date Last Done Comments Cervical Cancer Screening 1993 Depression Screening 1993 Hepatitis C Screening 1993 Regular Well Visit/Exam 18-64 2011 DTaP/Tdap/Td Vaccine (2 - Td or Tdap) 03/28/2017 03/28/2007 Influenza Vaccine (Season Ended) 2025 09/24/2012 Hepatitis B Screening Completed 1993 , 1993, 1993 Varicella Vaccines Completed 05/28/2007, 04/24/1995 HPV Vaccines Completed 10/01/2007, 05/28/2007, 03/28/2007 Pneumococcal vaccine <65 Aged Out No longer eligible based on patient's age to complete this topic Insurance [address] [place] [id number] [facility] CHOICE PLUS [facility] CHOICE PLUS Care Teams Community Development Worker Relationship Specialty Start Date End Date Serena Gallegos NP [facility] [place] [address] PCP - General Nurse Practitioner 02/20/24 Negar Carmona PA [address] [place] [id number] [place] [address] Physician Damage Adjuster Colon and Rectal Surgery 02/27/24 Ander Sadler MD [address] [facility] [address] [facility] [address] [place] [address] Referring Physician Gastroenterology 02/27/24
--- OUTSIDE RECORDS SUMMARY | 2025-03-31 08:44 | XMS_ITS | Data Portability ---
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 Patient will come back in a year unless there are new symptoms. Suggest Calcium with Vitamin D if not eating in diet. Patient advised to get annual flu shot. Recommend yearly physicals and preform monthly breast exams. Genetic testing is available for patients with family history of cancer. Engage in safe sexual practices, use condoms. Encouraged to have daily exercise. Avoid tobacco and illicit drugs, moderation of alcohol. If BMI greater than 25 dietary consult advised. If you have any questions please call or email. Not available 12/07/2021 17:44:51 12/31/2024 12/31/2024 Annual gynecological exam performed. Patient will come back in a year unless there are new symptoms. [email or web address] Not available 12/31/2024 16:17:21 Plan of Treatment Reminders Order Date Submit Date Provider Last Modified By Organization Details Last Modified Time Details Appointments None recorded. Lab None recorded. Referral pelvic floor therapy referral 2023 024 [email or web address], [address], [address], [place], [address], 4 09:28:29 Procedures None recorded. Surgeries None recorded. Imaging US, pelvis [email or web address], [address], [place], [address], 4 19:59:08 US, transvagina l 2023 024 [email or web address] [place], [address], [place], [address], 4 19:59:08 US, pelvis, complete 2023 024 [email or web address] [address] [place], [address], [place], [address], 4 15:17:30 Medication Orders celecoxib 200 mg capsule 2023 024 [email or web address] [id number], [address], [place], [place], [id number], 5 16:22:52 gabapentin 100 mg capsule 2023 024 [email or web address], [address], [place], [place], [id number], 5 16:23:04 Prometrium 200 mg capsule 2020 021 [place] [address] [id number], [address], [place], [place], [id number], 4 16:49:06 Patient TargetsNo targets recorded. Patient InstructionsNo instructions recorded. Reason for Referral Pelvic Floor Therapy Referra l for Pain in pelvis Pelvic Pain-women[facility] pelvic floor therapy Referring Physician: Erika Bravo, TRIMMER CLIMBER, Encounter Date: 12/20/2023 Results Created Date Observation Date Name Description Value Unit Range Abnormal Flag Note LastModifiedBy Organization Detail LastModifiedTime 12/20/19 24 12/20/2023 IMAGE GUIDE D PAP AND HPV REGAR DLESS image guided Pap, HPV regardless of Pap result SEE RESULT S BELOW CASE REPOR T: Cytol ogy Gynec ologi martha Repor t Case: [id number] Autho poncho segura Provi mateo: Yogi duran , Earnestine Franco cted: 12/20 1713 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 FINAL DIAGN OSIS: Negat filomena for Intra epith elial Lesio n or Marcel winters (NIL) . Elect iesha ballard phi d by Deanna Tillman ret, CT on 2023 at 4:46 PM ----- ----- ----- ----- ----- ----- ----- ----- ----- ----- ----- ----- ----- ----- ----- ----- ----- ---- HPV RESUL TS: HPV mRNA E6/E7 : No HPV mRNA Detec cong NOTE: This high risk HPV mRNA assay detec ts fourt een high- risk HPV types (16, 18, 31, 33, 35, 39, 45, 51, 52, 56, 58, 59, 66, 68) witho ut diffe renti ation . COMME NT: This speci men was revie wed by a Cytot echno logis t and/o r Patho logis t (as indic ated in this repor t) after evalu ation using the Thinp rep Imagi ng Syste m. CLINI MARTHA INFOR MATIO N: Menst rual Statu s: LMP (if appli cable ): Clini martha Histo ry/Pr eviou s Pap: Type of Neopl jimmy (if appli cable ): Signi fican t Clini martha Findi ngs: Other Histo ry: Hormo ivania (if appli cable ): PAP EDUCA TRICE L NOTE: The Pap Test is a scree joce test with an inher ent false negat filomena rate. Liqui d-bas ed sampl ing may decre ase, but will not elimi braulio, false negat filomena resul ts. A negat filomean resul t does not precl ude the prese nce and/o r devel opmen t of disea se, since the prese nce of abnor mal cells in the sampl e depen ds on the locat ion of the lesio n and sampl ing techn ique. [place] nued regul ar scree joce is the best metho d of cance r preve ntion . If repor cong cytol ogic findi ng do not corre late with physi martha and/o r histo rical findi ngs, furth er inves tigat ion is recom cynthia d, as clini [facility] nted. Not Available [facility] (Lab) [address], [place], [address], 12/26/2023 17:49:51 01/01/20 25 12/31/2024 IMAGE GUIDE D PAP AND HPV REGAR DLESS image guided Pap, HPV regardless of Pap result SEE RESULT S BELOW CASE REPOR T: Cytol ogy Gynec ologi martha Repor t Case: [id number] Autho rizin g Provi mateo: Gilson Nelson MD Colle cted: 12/31 1636 Order ing Locat ion: [place] Patho log[facility] Recei donna: 01/01 0152 First Scree n: Noora ni, Moham ed, CT Rescr een: Delores Martínez ay, CT Speci men: Scree joce Pap - Image d, Cervi x STATE MENT OF ADEQU ACY: Satis facto ry for evalu ation Trans forma tion zone compo nent absen t The absen ce of an endoc ervic al compo nent was confi rmed by an addit ional pravin buckner. ----- ----- ----- ----- ----- ----- ----- ----- ----- ----- ----- ----- ----- ----- ----- ----- ----- ---- FINAL DIAGN OSIS: Negat filomena for Intra epith elial Patrick espinosa or Marcel winters (NIL) . Elect iesha ansari by Delores Martínez , CT on 2024 at 0840 CDT ----- ----- ----- ----- ----- ----- ----- ----- ----- ----- ----- ----- ----- ----- ----- ----- ----- ---- HPV RESUL TS: HPV mRNA E6/E7 : No HPV mRNA Detec cong NOTE: This high risk HPV mRNA assay detec ts fourt een high- risk HPV types (16, 18, 31, 33, 35, 39, 45, 51, 52, 56, 58, 59, 66, 68) witho ut diffe renti ation . COMME NT: This speci men was revie wed by a Cytot echno logis t and/o r Patho logis t (as indic ated in this repor t) after evalu ation using the Thinp rep Imagi ng Syste m. CLINI MARTHA INFOR MATIO N: Menst rual Statu s: LMP (if appli cable ): Clini martha Histo ry/Pr eviou s Pap: Type of Neopl jimmy (if appli cable ): Signi fican t Clini martha Findi ngs: Other Histo ry: Hormo ivania (if appli cable ): PAP EDUCA TRICE L NOTE: The Pap Test is a scree joce test with an inher ent false negat filomena rate. Liqui d-bas ed sampl ing may decre ase, but will not elimi braulio, false negat filomena resul ts. A negat filomena resul t does not precl ude the prese nce and/o r devel opmen t of disea se, since the prese nce of abnor mal cells in the sampl e depen ds on the locat ion of the lesio n and sampl ing techn ique. [place] nued regul ar scree joce is the best metho d of cance r preve ntion . If repor cong cytol ogic findi ng do not corre late with physi martha and/o r histo rical findi ngs, furth er inves tigat ion is recom cynthia d, as clini [facility] warrjazmin nted. Not Available [facility] (Lab) [address], [place], [address], 01/05/2025 09:44:38 12/27/19 24 12/27/2023 US, pelvi s No observ ation record ed. [email or web address] [place] [address], [place], [address], 12/27/2023 17:05:47 12/27/19 24 12/27/2023 US, trans joyce al No observ ation record ed. [email or web address] [place] [address], [place], [address], 12/27/2023 17:05:35 12/27/19 24 12/27/2023 US, pelvi s No observ ation record ed. DOMINIC [place] [address], [place], [address], 01/08/2024 11:48:31 Result Notes None recorded. Problems Name Problem SNOMED Code Status Onset Date Resolution Date Notes Provider Name and Address Organization Details Recorded Time Body mass index 30+ - obesity 016212931 Completed 201711/24/2020 Body mass index (BMI) 30.0-30. 9, adult;Re corded Elsewher e: No Locat ion: [facility] S ource: EHR Senior Recruitment Consultant jonas: N Camiloti ce ID: 0001 Matthew lable Time: 01:00:00 PM Sharla mccartney, [facility] 1 10:39:41 Normal pregnanc y in multigra karina [id number] 4106 Completed 201811/24/2020 Encounte r for suprvsn of normal pregnanc y, second trimeste r;Record ed Elsewher e: No Locat ion: [facility] S ource: EHR Senior Recruitment Consultant jonas: N Camiloti ce ID: 0001 Matthew lable Time: 01:30:00 PM Sharla mccartney, [facility] 10:40:48 Gestatio n period, 34 weeks [id number] Completed 201511/24/2020 34 weeks gestatio n of pregnanc y;Record ed Elsewher e: No Locat ion: [facility] S ource: EHR Senior Recruitment Consultant jonas: N Viktoria ce ID: 0001 Matthew lable Time: 08:30:00 AM Sharla mccartney, [facility] 10:40:06 Hyperten sive disorder Completed 201511/24/2020 Unspecif ied maternal hyperten farhana, third trimeste r;Record ed Elsewher e: No Locat ion: [facility] S ource: EHR Senior Recruitment Consultant jonas: N Camiloti ce ID: 0001 Matthew lable Time: 02:00:00 PM Sharla mccartney, [facility] 10:40:28 Pregnanc y test positive [id number] Completed 201411/24/2020 Pregnanc y examinat ion or test, positive result;R ecorded Elsewher e: No Locat ion: [facility] S ource: EHR Senior Recruitment Consultant jonas: N Camiloti ce ID: 0001 Matthew lable Time: 09:15:00 AM Sharla mccartney [facility] 1 10:41:06 Pregnanc y-induce d hyperten farhana Completed 201502/25/2021 Gestatio nal htn w/o signific ant proteinu patito, third trimeste r;Record ed Elsewher e: No Locat ion[facility] S ource: EHR Senior Recruitment Consultant jonas: N Camiloti ce ID: 0001 Matthew lable Time: 09:30:00 AM Sharla Corrigan bib, [facility] 15:03:08 Thyroid disorder screenin g Completed 201411/24/2020 Screenin g for thyroid disorder s;Record ed Elsewher e: No Locat ion: [facility] Camiloti ce ID: 0001 Matthew lable Time: 09:30:00 AM Sharla Corrigan [facility], [facility] 10:41:34 Primigra karina [id number] Completed 201411/24/2020 Supervis ion of normal first pregnanc y;Record ed Elsewher e: No Locat ion: [facility] S ource: EHR Senior Recruitment Consultant jonas: N Camiloti ce ID: 0001 Matthew lable Time: 09:15:00 AM Sharla Corrigan bib, [facility] 10:41:14 Inflamma tory disorder of breast [id number] Completed 201811/24/2020 Mastitis ;Recorde d Elsewher e: No Locat ion: [facility]: N Practi ce ID: 0001 Matthew lable Time: 01:00:00 PM Sharla Corrigan [facility], [facility] 10:40:38 Evaluati on finding [id number] Completed 201811/24/2020 Oth abn and inconclu sive findings on dx imaging of breast;R ecorded Elsewher e: No Locat ion: [facility] S ource: EHR Senior Recruitment Consultant jonas: N Practi ce ID: 0001 Matthew lable Time: 09:11:34 AM Sharla mccartney [facility] 1 10:39:46 Pregnanc y, childbir th and puerperi um finding Completed 201411/24/2020 Encounte r for supervis ion of normal first pregnanc y, first trimeste r;Record ed Elsewher e: No [facility] our[facility]: EHR Senior Recruitment Consultant jonas: N Practi ce ID: 0001 Matthew lable Time: 09:30:00 AM Sharla mccartney [facility] 10:41:[address] Concept Completed 201711/24/2020 Encntr for smog technician exam (general ) (routine ) w/o abn findings ;Recorde d Elsewher e: No Locat ion: [facility]: N Practi ce ID: 0001 Matthew lable Time: 01:00:00 PM Sharla mccartney [facility] 10:41:31 Gestatio n period, 33 weeks [id number] Completed 201511/24/2020 33 weeks gestatio n of pregnanc y;Record ed Elsewher e: No Locat ion: [facility] S ource: EHR Senior Recruitment Consultant jonas: N Practi ce ID: 0001 Matthew lable Time: 08:30:00 AM Sharla mccartney [facility] 1 10:40:04 Pregnanc y, childbir th and puerperi um finding Completed 201511/24/2020 Encounte r for supervis ion of normal first pregnanc y, third trimeste r;Record ed Elsewher e: No Locat ion: [facility] S ource: EHR Senior Recruitment Consultant jonas: N Practi ce ID: 0001 Matthew lable Time: 08:30:00 AM Sharla mccartney [facility] 10:41:11 Hyperten sive disorder [id number] Completed 201511/24/2020 Essentia l (primary ) hyperten farhana;Rec orded Elsewher e: No [facility] S our[facility]: EHR Senior Recruitment Consultant jonas: N Practi ce ID: 0001 Matthew lable Time: 01:30:00 PM Sharla mccartney, [facility] 10:40:31 Gestatio n period, 36 weeks [id number] Completed 201511/24/2020 36 weeks gestatio n of pregnanc y;Record ed Elsewher e: No Locat ion: [facility] S ource: EHR Senior Recruitment Consultant jonas: N Practi ce ID: 0001 Matthew lable Time: 09:30:00 AM Sharla mccartney [facility] 10:40:10 Gestatio n less than 9 weeks [id number] Completed 201711/24/2020 Less than 8 weeks gestatio n of pregnanc y;Record ed Elsewher e: No Locat ion: [facility] S ource: EHR Senior Recruitment Consultant jonas: N Practi ce ID: 0001 Matthew lable Time: 10:45:00 AM Sharla mccartney [facility] 10:39:57 Gestatio n period, 32 weeks [id number] Completed 201511/24/2020 32 weeks gestatio n of pregnanc y;Record ed Elsewher e: No Locat ion: [facility] S ource: EHR Senior Recruitment Consultant jonas: N Practi ce ID: 0001 Matthew lable Time: 08:30:00 AM Sharla mccartney [facility] 10:40:02 Gestatio n period, 37 weeks [id number] Completed 201811/24/2020 37 weeks gestatio n of pregnanc y;Record ed Elsewher e: No Locat ion: [facility] S ource: EHR Senior Recruitment Consultant jonas: N Camiloti ce ID: 0001 Matthew lable Time: 03:30:00 PM Sharla Corrigan [facility], [facility] 10:40:13 Antenata l screenin g for malforma tion Completed 201711/24/2020 Encounte r for antenata l screenin g for malforma tions;Re corded Elsewher e: No Locat ion: [facility] S ource: EHR Senior Recruitment Consultant jonas: N Camiloti ce ID: 0001 Matthew lable Time: 02:30:00 PM Sharla Corrigan [facility], [facility] 10:39:37 Antenata l screenin g Completed 201411/24/2020 ANTENATA L SCREENIN G NEC;Jono rded Elsewher e: No Locat ion: [facility] S ource: EHR Senior Recruitment Consultant jonas: N Viktoria ce ID: 0001 Matthew lable Time: 08:45:00 AM Sharla Corrigan [facility], [facility] 10:39:35 Rubella screenin g status [id number] Completed 201711/24/2020 Encounte r for antenata l screenin g, unspecif ied;Jono rded Elsewher e: No Locat ion: [facility] S ource: EHR Senior Recruitment Consultant jonas: N Viktoria ce ID: 0001 Matthew lable Time: 04:15:00 PM Sharla Corrigan [facility], [facility] 10:41:19 Non-prot einuric hyperten farhana of pregnanc y [id number] Completed 201811/24/2020 Gestatio nal hyperten farhana w/o signific ant proteinu patito, complica ting the postpart um period;R ecorded Elsewher e: No Locat ion: [facility] S ource: EHR Senior Recruitment Consultant jonas: N Camiloti ce ID: 0001 Matthew lable Time: 05:15:00 PM Sharla mccartney, [facility] 10:40:44 Amenorrh ea [id number] Completed 201702/25/2021 Amenorrh ea, unspecif ied;Jono rded Elsewher e: No Locat ion: [facility] S ource: EHR Senior Recruitment Consultant jonas: N Camiloti ce ID: 0001 Matthew lable Time: 01:00:00 PM Sharla mccartney, [facility] 15:03:01 Mass of right breast [id number] 944225 Completed 201802/25/2021 Lump in the right breast;R ecorded Elsewher e: No Locat ion: [facility] S ource: EHR Senior Recruitment Consultant jonas: N Camiloti ce ID: 0001 Matthew lable Time: 05:15:00 PM Sharla mccartney, [facility] 15:03:06 Postproc edural state finding [id number] Completed 201511/24/2020 Other specifie d postproc edural states;R ecorded Elsewher e: No Locat ion: [facility] S ource: EHR Senior Recruitment Consultant jonas: N Camiloti ce ID: 0001 Matthew lable Time: 01:45:00 PM Sharla mccartney, [facility] 10:40:52 Gestatio n period, 35 weeks [id number] Completed 201511/24/2020 35 weeks gestatio n of pregnanc y;Record ed Elsewher e: No Locat ion: [facility] S ource: EHR Senior Recruitment Consultant jonas: N Practi ce ID: 0001 Matthew lable Time: 08:30:00 AM Sharla mccartney, [facility] 10:40:08 Secondar y amenorrh ea [id number] Completed 201711/24/2020 Secondar y amenorrh ea;Recor ded Elsewher e: No Locat ion: [facility]: N Practi ce ID: 0001 Matthew lable Time: 10:00:00 AM Sharla mccartney [facility] 10:41:24 Pregnanc y test negative [id number] Completed 201511/24/2020 Encounte r for pregnanc y test, result negative ;Recorde d Elsewher e: No [facility]at [facility]: N Practi ce ID: 0001 Matthew lable Time: 01:00:00 PM Sharla mccartney [facility] 10:41:03 Screenin g for malignan t neoplasm of cervix Completed 201611/24/2020 Encounte r for screenin g for malignan t neoplasm of cervix;R ecorded Elsewher e: No Locat ion: [facility]: N Camiloti ce ID: 0001 Matthew lable Time: 10:15:00 AM Sharla mccartney, [facility] 10:41:22 Procedur e on genitour inary system Completed 201811/24/2020 Encounte r for surgical aftercar e followin g surgery on the genitour inary system;R ecorded Elsewher e: No Locat ion: [facility] S ource: EHR Senior Recruitment Consultant jonas: N Practi ce ID: 0001 Matthew lable Time: 11:30:00 AM Sharla mccartney [facility] 10:41:17 Postoper ative care Completed 201811/24/2020 Encounte r for surgical aftercar e followin g surgery on the genitour inary system;R ecorded Elsewher e: No Locat ion: [facility] S ource: EHR Senior Recruitment Consultant jonas: N Practi ce ID: 0001 Matthew lable Time: 11:30:00 AM Sharla mccartney [facility] 10:40:50 Body mass index 25-29 - overweig ht [id number] Completed 201611/24/2020 Body mass index (BMI) 27.0-27. 9, adult;Re corded Elsewher e: No Locat ion: [facility] S ource: EHR Senior Recruitment Consultant jonas: N Camiloti ce ID: 0001 Matthew lable Time: 10:15:00 AM Sharla Corrigan bib, [facility] 10:39:39 Pregnanc y detectio n examinat ion Completed 201711/24/2020 Encounte r for pregnanc y test, result positive ;Recorde d Elsewher e: No Locat ion: [facility] S ource: EHR Senior Recruitment Consultant jonas: N Camiloti ce ID: 0001 Matthew lable Time: 10:00:00 AM Sharla Corrigan bib, [facility] 10:40:55 Elevated blood-pr essure reading without diagnosi s of hyperten farhana [id number] Completed 201602/25/2021 Elevated blood-pr essure reading, without diagnosi s of hyperten farhana;Rec orded Elsewher e: No Locat ion: [facility] S ource: EHR Senior Recruitment Consultant jonas: N Camiloti ce ID: 0001 Matthew lable Time: 04:15:00 PM Sharla mccartney, [facility] 15:03:04 heart finding Completed 201511/24/2020 Abnlt in heart rate and rhythm comp labor and delivery ;Practic e ID: 0001 Sharla Corrigan bib [facility] 10:39:55 Single live from singleto n pregnanc y [id number] Completed 201511/24/2020 Single live ;Pr actice ID: 0001 Sharla Corrigan bib, [facility] 10:41:26 Lochia finding Completed 201511/24/2020 Encounte r for routine postpart um follow-u p;Practi ce ID: 0001 Sharla mccartney, [facility] 10:40:35 Uses combined oral contrace ption [id number] Completed 201611/24/2020 Encounte r for initial prescrip tion of contrace ptive pills;Re corded Elsewher e: No Locat ion: [facility] S ource: EHR Senior Recruitment Consultant jonas: N Practi ce ID: 0001 Matthew lable Time: 10:15:00 AM Sharla mccartney, [facility] 10:39:48 Pregnanc y, childbir th and puerperi um finding Completed 201811/24/2020 Oth pregnanc y related conditio ns, third trimeste r;Practi ce ID: 0001 Sharla mccartney, [facility] 10:39:[address] Concept Completed 201811/24/2020 Decrease d movement s, third trimeste r, unsp;Pra ctice ID: 0001 Sharla mccartney, [facility] 10:41:29 Uterine scar from previous surgery affectin g pregnanc y [id number] Completed 201811/24/2020 Matern care for low transver se scar from prev del;Prac sugey ID: 0001 Sharla mccartney, [facility] 10:41:43 Gestatio n period, 39 weeks [id number] Completed 201811/24/2020 39 weeks gestatio n of pregnanc y;Practi ce ID: 0001 Sharla mccartney [facility] 10:40:15 Hyperten farhana in the obstetri c context Completed 201511/24/2020 Pre-exis ting essentia l hyperten farhana complica ting pregnanc y, third trimeste r;Record ed Elsewher e: No Locat ion: [facility] S ource: EHR Senior Recruitment Consultant jonas: N Practi ce ID: 0001 Matthew lable Time: 09:00:00 AM Sharla mccartney [facility] 10:41:49 Gestatio n period, 31 weeks [id number] Completed 201511/24/2020 31 weeks gestatio n of pregnanc y;Record ed Elsewher e: No Locat ion: [facility] S ource: EHR Senior Recruitment Consultant jonas: N Practi ce ID: 0001 Matthew lable Time: 02:00:00 PM Sharla mccartney [facility] 10:39:59 Abnormal uterine bleeding [id number] 100 Completed 202002/25/2021 Sharla mccartney [facility] 15:02:59 Notes:Encounter for antenata l screening of mother Recorded Elsewhere: No Location: [facility] Source: EHR Chronic: N Practice ID: 0001 Billable Time: 08:30:00 AM Encounter for screening of mother Practice ID: 0001 Problem Notes None recorded. Procedures Surgical History Date Name Laterality Status Provider Name and Address Organization Details Recorded Time 12/20/19 24 Date of Last Pap Smear completed Stefani Gomez [facility] 12/31/2024 16:17:42 02/27/20 23 Orthopedic Surgery completed Erin Quick [facility] 12/20/2023 16:45:20 09/17/20 22 completed Erin Quick [facility] 12/20/2023 16:40:17 09/17/20 22 Date of Last Colonoscopy completed Erin Quick [facility] 12/20/2023 16:40:17 08/29/20 22 Colonoscopy completed Erin Spencerer [facility] 12/20/2023 16:45:02 01/09/20 19 section completed Sharla Krishnamurthytz [facility] 11/24/2020 10:47:29 12/22/19 16 section completed Sharla Corrigan [facility] 11/24/2020 10:47:36 Imaging Results None recorded. Procedure Notes None recorded. Medical Equipment None Reported. Allergies Allergen ID Allergen Name Allergen Category Reaction Reaction Severity Criticality Documentation Date Start Date Code Code System Note Provider Name and Address Organization Details Recorded Time 92487 amoxicill in medicatio n Not available Not available Not available 10/15/2020 723 RxNorm React ion: rash/ hives ; Comme nt: [facility]at [facility]; Not Available [facility] 14:24:39 Medications Name Sig Start Date Stop Date Status Note LastModified by Organization Details LastModified Time diltiazem 2% ointment APPLY PEA SIZE AMOUNT TO ANUS USING GLOVED FINGER TWICE DAILY FOR ANAL FISSURE 12/31 completed Not Available Not Available Not Available hc 50mg neomycin sulfate 15mg supp UNWRAP AND INSERT 1 SUPPOSIT ORY RECTALLY EVERY NIGHT AT BEDTIME X 2 WEEKS 12/31 completed Not Available Not Available Not Available celecoxib 200 mg capsule Take 1 capsule every day by oral route as directed for 30 days, for pelvic pain. 12/31 completed Not Available Not Available Not Available Prometriu m 200 mg capsule take 1 capsule by oral route every day for 12 days in the evening every 3 months 12/20 completed Not Available Not Available Not Available erythromy floridalma 500 mg tablet Take 1 tablet twice a day by oral route for 10 days. 12/07 completed Not Available Not Available Not Available clindamyc in HCl 300 mg capsule take 1 capsule by oral route every 8 hours 12/07 completed Not Available Not Available Not Available lisinopri l 20 mg tablet TAKE 1 TABLET BY MOUTH DAILY active Not Available Not Available No t Available prednison e 20 mg tablet TAKE 1 TABLET BY MOUTH TWICE DAILY FOR 5 DAYS 12/20 completed Not Available Not Available Not Available Tamiflu 75 mg capsule take 1 capsule by oral route every day 11/24 completed Prescrib ed Elsewher e: No Locat ion: [facility] odify By: bngita german DateTime : 01/08/20 02:01:42 PM Not Available Not Available Not Available tramadol 50 mg tablet TAKE 1 TABLET BY MOUTH EVERY 8 HOURS NEEDED FOR MODERATE TO SEVERE PAIN 12/20 completed Not Available Not Available Not Available ciclopiro x 8 % topical solution APPLY ONCE DAILY TO AFFECTED NAILS. REMOVE ONCE A WEEK WITH FRISIAN REMOVER 12/31 completed Not Available Not Available Not Available [facility] Lisinopri l 20 mg tablet 12/20 completed Not Available Not Available Not Available hydrocodo ne 7.5 mg-acetam inophen 325 mg tablet TAKE 1 TABLET BY MOUTH EVERY 4 TO 6 HOURS NEEDED FOR PAIN 12/20 completed Not Available Not Available Not Available erythromy

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
--- OUTSIDE RECORDS SUMMARY | 2025-03-31 08:44 | XMS_ITS | Data Portability ---
Author Organization [facility] JEREMYBharat Mathis Address [address] [place] [address] Care Team Providers Care Coal Hauler Name Role Phone VINNY AWADNY Primary Care Provider Unavailabl e Assessment No assessment recorded. Plan of Treatment Reminders Order Date Submit Date Provider Last Modified By Organization Details Last Modified Time Details Appointments None recorded. Lab TSH + free T4, serum 2016 017 DOMINIC [facility], [facility], [facility] [address], [place], [address], 7 06:09:31 CMP, serum or plasma 2016 017 [facility]IC [facility], [facility], [facility] [address], [place], [address], 7 06:09:32 CBC w/ auto diff 2016 017 DOMINIC [facility], [facility], [facility] [address], [place], [address], 7 06:09:32 bacterial vaginosis + vaginitis panel, vaginal 2014 015 mora 23 [facility], [facility], [facility] [address], [place], [address], 5 18:35:16 obstetric screen, serum or blood 2014 015 mora Gupta [facility], [address] [place], [place] [address]silas Pastor, [address], [place], [address], 5 20:31:28 urinalysis complete, reflex culture 2014 015 [facility] 23 [facility], [address], [address], [place], [address], 5 20:31:28 HIV (1+2) Ab screen, serum 2014 015 [facility] 23 [facility], [address], [address], [place], [address], 5 20:31:28 drug screen, urine 2014 015 [facility] 23 [facility], [address], [address], [place], [address], 5 20:31:28 hemoglobin S (hbs), presence, blood 2014 015 [facility] 23 [facility], [address], [address], [place], [address], 5 20:31:28 varicella-z edwin igg Ab screen, serum 2014 015 [facility] 23 [facility], [address], [address], [place], [address], 5 20:31:28 cf (cystic fibrosis) profile 2014 015 [facility] 23 [facility], [address], [address], [place], [address], 5 20:31:29 Referral None recorded. Procedures None recorded. Surgeries None recorded. Imaging ultrasound, OB, trimester 1 2014 015 mora 23 Not available 5 20:31:29 Medication Orders hydrochloro thiazide 12.5 mg capsule 2016 017 maribeth [id number], [address], [place], [place], [id number], 7 21:33:51 Vitamin tablet 2014 015 [email or web address] Not available 09:03:51 Patient TargetsNo targets recorded. Patient Instructions Encounter Date Encounter Id Patient Instructions Last Modified By Organization Details Last Modified Time 05/25/2015 [id number] secondary amenor ethan: care instructions luz marina Not available 07/28/2015 08:35:00 08/02/2017 [id number] Get a home BP automated machine (not wrist cuff) and check few times a week, different times of day and keep a log. Call if BP persistently above 140/90mmHg. ramonterri Not available 08/03/2017 11:16:31 09/06/2017 [id number] Take hydrochlorothiazide 12.5mg every morning with food. Check blood pressures once a week. Call if any problems with medication. [email or web address] Not available 09/06/2017 09:23:26 09/10/2017 [id number] STOP hydrochlorothiazide 12.5mg. Check BP 1-2 times a day this week and log into portal BP readings. We can discuss if further medications needed. [email or web address] Not available 09/10/2017 21:35:57 Reason for Referral None Reported. Results Created Date Observation Date Name Description Value Unit Range Abnormal Flag Note LastModifiedBy Organization Detail LastModifiedTime 05/25/20 15 05/25/2015 obste tric scree n, serum or blood HBsAg screen Not Available [facility] ([facility]) [address] [facility] [address], [place], [address], 05/26/2015 06:07:49 05/25/20 15 05/25/2015 obste tric scree n, serum or blood rubella antibodies, IgG Not Available [facility] ([facility]) [address] [facility] [address], [place], [address], 05/26/2015 06:07:49 05/25/20 15 05/25/2015 obste tric scree n, serum or blood ABO grouping Not Available [facility] ([facility]) [address] [place], [address], 05/26/2015 06:07:49 05/25/20 15 05/25/2015 obste tric scree n, serum or blood Rh factor Not Available [facility] ([facility]) [address] [place], [address], 05/26/2015 06:07:49 05/25/20 15 05/25/2015 obste tric scree n, serum or blood antibody screen Not Available [facility] ([facility]) [address] [place], [address], 05/26/2015 06:07:49 05/25/20 15 05/26/2015 obste tric scree n, serum or blood RPR Not Available [facility] ([facility]) [address] [place], [address], 05/26/2015 06:07:49 05/25/20 15 05/26/2015 obste tric scree n, serum or blood WBC 8.9 x10e3 /uL 3.4-10 .8 Not Available [facility] ([facility]) [address] [place], [address], 05/26/2015 06:07:49 05/25/20 15 05/26/2015 obste tric scree n, serum or blood RBC 4.97 x10e6 /uL 3.77-5 .28 Not Available [facility] ([facility]) [address] [place], [address], 05/26/2015 06:07:49 05/25/20 15 05/26/2015 obste tric scree n, serum or blood hemoglobin 14.7 g/dL 11.1-1 5.9 Not Available [facility] ([facility]) [address] [facility] [address], [place], [address], 05/26/2015 06:07:49 05/25/20 15 05/26/2015 obste tric scree n, serum or blood hematocrit 44.4 % 34.0-4 6.6 Not Available [facility] ([facility]) [address] [facility] [address], [place], [address], 05/26/2015 06:07:49 05/25/20 15 05/26/2015 obste tric scree n, serum or blood MCV 89 fL 79-97 Not Available [facility] ([facility]) [address] [facility] [address], [place], [address], 05/26/2015 06:07:49 05/25/20 15 05/26/2015 obste tric scree n, serum or blood MCH 29.6 pg 26.6-3 3.0 Not Available [facility] ([facility]) [address] [facility], [place], [address], 05/26/2015 06:07:49 05/25/20 15 05/26/2015 obste tric scree n, serum or blood MCHC 33.1 g/dL 31.5-3 5.7 Not Available [facility] ([facility]) [address] [facility] [address], [place], [address], 05/26/2015 06:07:49 05/25/20 15 05/26/2015 obste tric scree n, serum or blood RDW 12.6 % 12.3-1 5.4 Not Available [facility] ([facility]) [address] [place], [address], 05/26/2015 06:07:49 05/25/20 15 05/26/2015 obste tric scree n, serum or blood platelets 326 x10e3 /uL 150-37 9 Not Available [facility] ([facility]) [address] [place], [address], 05/26/2015 06:07:49 05/25/20 15 05/26/2015 obste tric scree n, serum or blood neutrophils 75 % Not Available [facility] ([facility]) [address] [place], [address], 05/26/2015 06:07:49 05/25/20 15 05/26/2015 obste tric scree n, serum or blood lymphs 18 % Not Available [facility] ([facility]) [address] [place] [address], [address], 05/26/2015 06:07:49 05/25/20 15 05/26/2015 obste tric scree n, serum or blood monocytes 6 % Not Available [facility] ([facility]) [address] [place], [address], 05/26/2015 06:07:49 05/25/20 15 05/26/2015 obste tric scree n, serum or blood eos 1 % Not Available [facility] ([facility]) [address] [place], [address], 05/26/2015 06:07:49 05/25/20 15 05/26/2015 obste tric scree n, serum or blood basos 0 % Not Available [facility] ([facility]) [address] [place] [address], [address], 05/26/2015 06:07:49 05/25/20 15 05/26/2015 obste tric scree n, serum or blood immature cells JINRIKISHA DRIVER Not Available [facility] ([facility]) [address] [place], [address], 05/26/2015 06:07:49 05/25/20 15 05/26/2015 obste tric scree n, serum or blood neutrophils (absolute) 6.7 x10e3 /uL 1.4-7. 0 Not Available [facility] ([facility]) [address] [place], [address], 05/26/2015 06:07:49 05/25/20 15 05/26/2015 obste tric scree n, serum or blood lymphs (absolute) 1.6 x10e3 /uL 0.7-3. 1 Not Available [facility] ([facility]) [address] [place], [address], 05/26/2015 06:07:49 05/25/20 15 05/26/2015 obste tric scree n, serum or blood monocytes(ab solute) 0.5 x10e3 /uL 0.1-0. 9 Not Available [facility] ([facility]) [address] [place], [address], 05/26/2015 06:07:49 05/25/20 15 05/26/2015 obste tric scree n, serum or blood eos (absolute) 0.1 x10e3 /uL 0.0-0. 4 Not Available [facility] ([facility]) [address] [place], [address], 05/26/2015 06:07:49 05/25/20 15 05/26/2015 obste tric scree n, serum or blood baso (absolute) 0.0 x10e3 /uL 0.0-0. 2 Not Available [facility] ([facility]) [address] [place], [address], 05/26/2015 06:07:49 05/25/20 15 05/26/2015 obste tric scree n, serum or blood immature granulocytes 0 % Not Available [facility] ([facility]) [address] [place], [address], 05/26/2015 06:07:49 05/25/20 15 05/26/2015 obste tric scree n, serum or blood immature grans (abs) 0.0 x10e3 /uL 0.0-0. 1 Not Available [facility] ([facility]) [address] [place], [address], 05/26/2015 06:07:49 05/25/20 15 05/26/2015 obste tric scree n, serum or blood NRBC JINRIKISHA DRIVER Not Available [facility] ([facility]) [address] [place], [address], 05/26/2015 06:07:49 05/25/20 15 05/26/2015 obste tric scree n, serum or blood hematology comments: JINRIKISHA DRIVER Not Available [facility] ([facility]) [address] [facility] [address], [place], [address], 05/26/2015 06:07:49 05/25/20 15 05/26/2015 urina lysis compl ete, refle x cultu re specific gravity 1.026 1.005- 1.030 Not Available [facility] ([facility]) [address] [facility], [place], [address], 05/31/2015 12:37:44 05/25/20 15 05/26/2015 urina lysis compl ete, refle x cultu re pH 6.5 5.0-7. 5 Not Available [facility] ([facility]) [address] [facility] [address], [place], [address], 05/31/2015 12:37:44 05/25/20 15 05/26/2015 urina lysis compl ete, refle x cultu re urine-color YELLOW yellow Not Available [facility] ([facility]) [address] [facility], [place], [address], 05/31/2015 12:37:44 05/25/20 15 05/26/2015 urina lysis compl ete, refle x cultu re appearance CLOUDY clear abnormal Not Available [facility] ([facility]) [address] [place], [address], 05/31/2015 12:37:44 05/25/20 15 05/26/2015 urina lysis compl ete, refle x cultu re WBC esterase NEGATI VE negati ve Not Available [facility] ([facility]) [address] [facility] [address], [place], [address], 05/31/2015 12:37:44 05/25/20 15 05/26/2015 urina lysis compl ete, refle x cultu re protein TRACE negati ve/tra ce Not Available [facility] ([facility]) [address] [facility], [place], [address], 05/31/2015 12:37:44 05/25/20 15 05/26/2015 urina lysis compl ete, refle x cultu re glucose NEGATI VE negati ve Not Available [facility] ([facility]) [address] [facility], [place], [address], 05/31/2015 12:37:44 05/25/20 15 05/26/2015 urina lysis compl ete, refle x cultu re ketones NEGATI VE negati ve Not Available [facility] ([facility]) [address] [facility], [place], [address], 05/31/2015 12:37:44 05/25/20 15 05/26/2015 urina lysis compl ete, refle x cultu re occult blood NEGATI VE negati ve Not Available [facility] ([facility]) [address] [facility], [place], [address], 05/31/2015 12:37:44 05/25/20 15 05/26/2015 urina lysis compl ete, refle x cultu re bilirubin NEGATI VE negati ve Not Available [facility] ([facility]) [address] [facility], [place], [address], 05/31/2015 12:37:44 05/25/20 15 05/26/2015 urina lysis compl ete, refle x cultu re urobilinogen ,semi-qn 0.2 mg/dL 0.0-1. 9 Not Available [facility] ([facility]) [address] [place], [address], 05/31/2015 12:37:44 05/25/20 15 05/26/2015 urina lysis compl ete, refle x cultu re nitrite, urine NEGATI VE negati ve Not Available [facility] ([facility]) [address] [facility] [address], [place], [address], 05/31/2015 12:37:44 05/25/20 15 05/26/2015 urina lysis compl ete, refle x cultu re microscopic examination COMMEN T MICRO SCOPI C FOLLO WS IF INDIC ATED. Not Available [facility] ([facility]) [address] [facility] [address], [place], [address], 05/31/2015 12:37:44 05/25/20 15 05/26/2015 urina lysis compl ete, refle x cultu re microscopic examination SEE BELOW: MICRO SCOPI C WAS INDIC ATED AND WAS PERFO RMED. Not Available [facility] ([facility]) [address] [facility] [address], [place], [address], 05/31/2015 12:37:44 05/25/20 15 05/26/2015 urina lysis compl ete, refle x cultu re WBC 0-5 /hpf 0 - 5 Not Available [facility] ([facility]) [address] [facility], [place], [address], 05/31/2015 12:37:44 05/25/20 15 05/26/2015 urina lysis compl ete, refle x cultu re RBC 0-2 /hpf 0 - 2 Not Available [facility] ([facility]) [address] [facility] [address], [place], [address], 05/31/2015 12:37:44 05/25/20 15 05/26/2015 urina lysis compl ete, refle x cultu re epithelial cells (non renal) >10 /hpf 0 - 10 abnormal Not Available [facility] ([facility]) [address] [facility] [address], [place], [address], 05/31/2015 12:37:44 05/25/20 15 05/26/2015 urina lysis compl ete, refle x cultu re mucus threads PRESEN T not estab. Not Available [facility] ([facility]) [address] [facility], [place], [address], 05/31/2015 12:37:44 05/25/20 15 05/26/2015 urina lysis compl ete, refle x cultu re bacteria FEW none seen/f ew Not Available [facility] ([facility]) [address] [facility], [place], [address], 05/31/2015 12:37:44 05/25/20 15 05/26/2015 urina lysis compl ete, refle x cultu re urinalysis reflex COMMEN T THIS SPECI MEN WILL NOT REFLE X TO A URINE CULTU RE. Not Available [facility] ([facility]) [address] [facility], [place], [address], 05/31/2015 12:37:44 05/25/20 15 05/26/2015 hemog lobin S (hbs) , prese nce, blood hemoglobin (HGB) solubility NEGATI VE negati ve SINCE A VARIE TY OF CONDI TIONS AND OTHER ABNOR MAL HEMOG LOBIN S IN ADDIT ION TO HEMOG LOBIN S MAY GIVE FALSE -POSI TIVE RESUL TS, POSIT LAURENCE HEMOG LOBIN SOLUB ILITY TESTS SHOUL D BE CONFI RMED BY HEMOG LOBIN FRACT IONAT ION TESTI NG. Not Available [facility] ([facility]) [address] [facility] [address], [place], [address], 05/26/2015 10:40:46 05/25/20 15 05/26/2015 varic cecelia- zoste r igg Ab scree n, serum varicella zoster IgG 567 index immune >165 NEGAT LAURENCE <135 EQUIV OCAL 135 - 165 POSIT LAURENCE >165 A POSIT LAURENCE RESUL T GENER ALLY INDIC ATES EXPOS URE TO THE PATHO GEN OR ADMIN ISTRA TION OF SPECI FIC IMMUN OGLOB ULINS , BUT IT IS NOT INDIC ATION OF ACTIV E INFEC TION OR STAGE OF DISEA SE. Not Available [facility] ([facility]) [address] [place], [address], 05/26/2015 14:44:17 05/25/20 15 05/26/2015 obste tric scree n, serum or blood HBsAg screen NEGATI VE negati ve Not Available [facility] ([facility]) [address] [place], [address], 05/26/2015 06:15:01 05/25/20 15 05/26/2015 HIV (1+O+ 2) Ab, serum HIV 1/O/2 abs-index value <1.00 <1.00 INDEX VALUE : SPECI MEN REACT IVITY RELAT LAURENCE TO THE NEGAT LAURENCE CUTOF F. Not Available [facility] ([facility]) [address] [facility] [address], [place], [address], 05/26/2015 06:15:01 05/25/20 15 05/26/2015 HIV (1+O+ 2) Ab, serum HIV 1/O/2 abs, qual NON REACTI VE non reacti ve Not Available [facility] ([facility]) [address] [facility] [address], [place], [address], 05/26/2015 06:15:01 05/25/20 15 05/26/2015 obste tric scree n, serum or blood HBsAg screen NEGATI VE negati ve Not Available [facility] ([facility]) [address] [place], [address], 05/31/2015 12:37:44 05/25/2005/26/2015 obste tric scree n, serum or blood rubella antibodies, IgG 1.07 index immune >0.99 NON-I MMUNE <0.90 EQUIV OCAL 0.90 - 0.99 IMMUN E >0.99 Not Available [facility] ([facility]) [address] [place], [address], 05/31/2015 12:37:44 05/25/20 15 05/26/2015 obste tric scree n, serum or blood ABO grouping O Not Available [facility] ([facility]) [address] [place], [address], 05/31/2015 12:37:44 05/25/20 15 05/26/2015 obste tric scree n, serum or blood Rh factor NEGATI VE PLEAS E NOTE: PRIOR RECOR DS FOR THIS PATIE NT'S ABO / RH TYPE ARE NOT AVAIL ABLE FOR ADDIT IONAL VERIF ICATI ON. Not Available [facility] ([facility]) [address] [place], [address], 05/31/2015 12:37:44 05/25/20 15 05/26/2015 obste tric scree n, serum or blood antibody screen NEGATI VE negati ve Not Available [facility] ([facility]) [address] [place], [address], 05/31/2015 12:37:44 05/25/20 15 05/26/2015 obste tric scree n, serum or blood RPR NON REACTI VE non reacti ve Not Available [facility] ([facility]) [address] [place], [address], 05/31/2015 12:37:44 05/25/20 15 05/26/2015 obste tric scree n, serum or blood WBC 8.9 x10e3 /uL 3.4-10 .8 Not Available [facility] ([facility]) [address] [place], [address], 05/31/2015 12:37:44 05/25/20 15 05/26/2015 obste tric scree n, serum or blood RBC 4.97 x10e6 /uL 3.77-5 .28 Not Available [facility] ([facility]) [address] [place] [address], [address], 05/31/2015 12:37:44 05/25/20 15 05/26/2015 obste tric scree n, serum or blood hemoglobin 14.7 g/dL 11.1-1 5.9 Not Available [facility] ([facility]) [address] [place], [address], 05/31/2015 12:37:44 05/25/20 15 05/26/2015 obste tric scree n, serum or blood hematocrit 44.4 % 34.0-4 6.6 Not Available [facility] ([facility]) [address] [facility], [place], [address], 05/31/2015 12:37:44 05/25/20 15 05/26/2015 obste tric scree n, serum or blood MCV 89 fL 79-97 Not Available [facility] ([facility]) [address] [facility], [place], [address], 05/31/2015 12:37:44 05/25/20 15 05/26/2015 obste tric scree n, serum or blood MCH 29.6 pg 26.6-3 3.0 Not Available [facility] ([facility]) [address] [place], [address], 05/31/2015 12:37:44 05/25/20 15 05/26/2015 obste tric scree n, serum or blood MCHC 33.1 g/dL 31.5-3 5.7 Not Available [facility] ([facility]) [address] [place], [address], 05/31/2015 12:37:44 05/25/20 15 05/26/2015 obste tric scree n, serum or blood RDW 12.6 % 12.3-1 5.4 Not Available [facility] ([facility]) [address] [place], [address], 05/31/2015 12:37:44 05/25/20 15 05/26/2015 obste tric scree n, serum or blood platelets 326 x10e3 /uL 150-37 9 Not Available [facility] ([facility]) [address] [facility], [place], [address], 05/31/2015 12:37:44 05/25/20 15 05/26/2015 obste tric scree n, serum or blood neutrophils 75 % Not Available [facility] ([facility]) [address] [facility], [place], [address], 05/31/2015 12:37:44 05/25/20 15 05/26/2015 obste tric scree n, serum or blood lymphs 18 % Not Available [facility] ([facility]) [address] [place], [address], 05/31/2015 12:37:44 05/25/20 15 05/26/2015 obste tric scree n, serum or blood monocytes 6 % Not Available [facility] ([facility]) [address] [place], [address], 05/31/2015 12:37:44 05/25/20 15 05/26/2015 obste tric scree n, serum or blood eos 1 % Not Available [facility] ([facility]) [address] [place], [address], 05/31/2015 12:37:44 05/25/20 15 05/26/2015 obste tric scree n, serum or blood basos 0 % Not Available [facility] ([facility]) [address] [place], [address], 05/31/2015 12:37:44 05/25/20 15 05/26/2015 obste tric scree n, serum or blood neutrophils (absolute) 6.7 x10e3 /uL 1.4-7. 0 Not Available [facility] ([facility]) [address] [place], [address], 05/31/2015 12:37:44 05/25/20 15 05/26/2015 obste tric scree n, serum or blood lymphs (absolute) 1.6 x10e3 /uL 0.7-3. 1 Not Available [facility] ([facility]) [address] [place], [address], 05/31/2015 12:37:44 05/25/20 15 05/26/2015 obste tric scree n, serum or blood monocytes(ab solute) 0.5 x10e3 /uL 0.1-0. 9 Not Available [facility] ([facility]) [address] [place] [address], [address], 05/31/2015 12:37:44 05/25/20 15 05/26/2015 obste tric scree n, serum or blood eos (absolute) 0.1 x10e3 /uL 0.0-0. 4 Not Available [facility] ([facility]) [address] [place], [address], 05/31/2015 12:37:44 05/25/20 15 05/26/2015 obste tric scree n, serum or blood baso (absolute) 0.0 x10e3 /uL 0.0-0. 2 Not Available [facility] ([facility]) [address] [place] [address], [address], 05/31/2015 12:37:44 05/25/20 15 05/26/2015 obste tric scree n, serum or blood immature granulocytes 0 % Not Available [facility] ([facility]) [address] [place] [address], [address], 05/31/2015 12:37:44 05/25/20 15 05/26/2015 obste tric scree n, serum or blood immature grans (abs) 0.0 x10e3 /uL 0.0-0. 1 Not Available [facility] ([facility]) [address] [place] [address], [address], 05/31/2015 12:37:44 05/25/20 15 05/26/2015 drug scree n, urine amphetamines , urine NEGATI VE NG/mL cutoff =1000 AMPHE TAMIN E TEST INCLU ANN MARIE AMPHE TAMIN E AND METHA MPHET AMINE . Not Available [facility] ([facility]) [address] [place], [address], 05/26/2015 16:38:22 05/25/20 15 05/26/2015 drug scree n, urine barbiturates NEGATI VE NG/mL cutoff =200 Not Available [facility] ([facility]) [address] [place] [address], [address], 05/26/2015 16:38:22 05/25/20 15 05/26/2015 drug scree n, urine benzodiazepi ivania NEGATI VE NG/mL cutoff =200 Not Available [facility] ([facility]) [address] [place], [address], 05/26/2015 16:38:22 05/25/20 15 05/26/2015 drug scree n, urine cannabinoid NEGATI VE NG/mL cutoff =50 Not Available [facility] ([facility]) [address] [place] [address], [address], 05/26/2015 16:38:22 05/25/20 15 05/26/2015 drug scree n, urine cocaine (metab.) NEGATI VE NG/mL cutoff =300 Not Available [facility] ([facility]) [address] [place], [address], 05/26/2015 16:38:22 05/25/20 15 05/26/2015 drug scree n, urine methaqualone NEGATI VE NG/mL cutoff =300 Not Available [facility] ([facility]) [address] [place], [address], 05/26/2015 16:38:22 05/25/20 15 05/26/2015 drug scree n, urine opiates NEGATI VE NG/mL cutoff =2000 OPIAT E TEST INCLU ANN MARIE CODEI NE AND MORPH INE ONLY. Not Available [facility] ([facility]) [address] [facility] [place], [address], 05/26/2015 16:38:22 05/25/20 15 05/26/2015 drug scree n, urine phencyclidin e NEGATI VE NG/mL cutoff =25 Not Available [facility] ([facility]) [address] [place], [address], 05/26/2015 16:38:22 05/25/20 15 05/26/2015 drug scree n, urine methadone screen, urine NEGATI VE NG/mL cutoff =300 Not Available [facility] ([facility]) [address] [place], [address], 05/26/2015 16:38:22 05/25/20 15 05/26/2015 drug scree n, urine propoxyphene , urine NEGATI VE NG/mL cutoff =300 Not Available [facility] ([facility]) [address] [place], [address], 05/26/2015 16:38:22 05/25/20 15 05/25/2015 cf (cyst ic fibro sis) profi xavier comment: COMMEN T THE ASSAY PROVI ANN MARIE INFOR MATIO N INTEN DED TO BE USED FOR AYDIN ER SCREE WILFRID IN ADULT S OF REPRO DUCTI VE AGE, AN AID IN [facility] RN SCREE WILFRID, AND A CONFI RMATO RY TEST FOR ANOTH ER MEDIC ALLY ESTAB LISHE D DIAGN OSIS IN [facility] RNS AND CHILD INDER. THE TEST IS NOT INDIC ATED FOR USE IN DIAGN OSTIC TESTI NG, PRE-I MPLAN TATIO N SCREE WILFRID, OR FOR ANY STAND -BOZENA E DIAGN OSTIC PURPO SES WITHO UT CONFI RMATI ON BY ANOTH ER MEDIC ALLY ESTAB LISHE D DIAGN OSTIC PRODU CT OR PROCE DURE. Not Available [facility] ([facility]) [address] [place], [address], 05/31/2015 12:37:45 05/25/20 15 05/31/2015 cf (cyst ic fibro sis) profi le CF, screen COMMEN T MOLEC ULAR LANIE SIS REPOR T HAS BEEN ELIZABETH D. Not Available [facility] ([facility]) [address] [place], [address], 05/31/2015 12:37:45 06/22/20 15 06/27/2015 bacte rial vagin osis + vagin itis panel , vagin al atopobium vaginae MODERA TE - 1 score Not Available [facility] ([facility]) [address] [place], [address], 06/27/2015 20:36:23 06/22/20 15 06/27/2015 bacte rial vagin osis + vagin itis panel , vagin al bvab 2 LOW - 0 score Not Available [facility] ([facility]) [address] [place], [address], 06/27/2015 20:36:23 06/22/20 15 06/27/2015 bacte rial vagin osis + vagin itis panel , vagin al megasphaera 1 LOW - 0 score CALCU LATE TOTAL SCORE BY PURA Segura THE 3 INDIV IDUAL BACTE RIAL VAGIN OSIS (BV) MARKE R SCORE S TOGET HER. TOTAL SCORE IS INTER PRETE D FOLLO WS: TOTAL SCORE 0-1: INDIC ATES THE ABSEN CE OF BV. TOTAL SCORE 2: INDET ERMIN ATE FOR BV. ADDIT IONAL CLINI OLGA LIDIA DATA SHOUL D BE EVALU ATED TO ESTAB SIA A DIAGN OSIS. TOTAL SCORE 3-6: INDIC ATES THE PRESE NCE OF BV. THIS TEST WAS DEVEL OPED AND ITS PERFO RMANC E FELICITY CTERI STICS DETER MINED BY [facility]. IT HAS NOT BEEN CLEAR ED OR APPRO OMERO BY THE FOOD AND DRUG ADMIN ISTRA TION. THE FDA HAS DETER MINED THAT SUCH CLEAR ANCE OR APPRO BENIGNO IS NOT NECES MAONJ. Not Available [facility] ([facility]) [address] [place], [address], 06/27/2015 20:36:23 06/22/20 15 06/27/2015 bacte rial vagin osis + vagin itis panel , vagin al yvette albicans, POONAM NEGATI VE negati ve Not Available [facility] ([facility]) [address] [place], [address], 06/27/2015 20:36:23 06/22/20 15 06/27/2015 bacte rial vagin osis + vagin itis panel , vagin al yvette glabrata, POONAM NEGATI VE negati ve THIS TEST WAS DEVEL OPED AND ITS PERFO RMANC E FELICITY CTERI STICS DETER MINED BY [facility]. IT HAS NOT BEEN CLEAR ED OR APPRO OMERO BY THE FOOD AND DRUG ADMIN ISTRA TION. THE FDA HAS DETER MINED THAT SUCH CLEAR ANCE OR APPRO BENIGNO IS NOT NECES MANOJ. Not Available [facility] ([facility]) [address] [place], [address], 06/27/2015 20:36:23 06/22/20 15 06/27/2015 bacte rial vagin osis + vagin itis panel , vagin al trich vag by POONAM NEGATI VE negati ve Not Available [facility] ([facility]) [address] [place], [address], 06/27/2015 20:36:23 06/22/20 15 06/27/2015 bacte rial vagin osis + vagin itis panel , vagin al chlamydia trachomatis, POONAM NEGATI VE negati ve Not Available [facility] ([facility]) [address] [place], [address], 06/27/2015 20:36:23 06/22/20 15 06/27/2015 bacte rial vagin osis + vagin itis panel , vagin al neisseria gonorrhoeae, POONAM NEGATI VE negati ve Not Available [facility] ([facility]) [address] [place], [address], 06/27/2015 20:36:23 09/06/20 17 09/07/2017 TSH + free T4, serum TSH 0.970 uIU/m L 0.450- 4.500 Not Available [facility] ([facility]) [address] [place], [address], 09/07/2017 06:09:31 09/06/20 17 09/07/2017 TSH + free T4, serum T4,free(dire ct) 1.02 NG/dL 0.82-1 .77 Not Available [facility] ([facility]) [address] [facility], [place], [address], 09/07/2017 06:09:31 09/06/20 17 09/07/2017 CBC w/ auto diff WBC 5.3 x10e3 /uL 3.4-10 .8 Not Available [facility] ([facility]) [address] [place], [address], 09/07/2017 06:09:32 09/06/20 17 09/07/2017 CBC w/ auto diff RBC 4.82 x10e6 /uL 3.77-5 .28 Not Available [facility] ([facility]) [address] [place], [address], 09/07/2017 06:09:32 09/06/20 17 09/07/2017 CBC w/ auto diff hemoglobin 14.2 g/dL 11.1-1 5.9 Not Available [facility] ([facility]) [address] [place], [address], 09/07/2017 06:09:32 09/06/20 17 09/07/2017 CBC w/ auto diff hematocrit 42.9 % 34.0-4 6.6 Not Available [facility] ([facility]) [address] [place], [address], 09/07/2017 06:09:32 09/06/20 17 09/07/2017 CBC w/ auto diff MCV 89 fL 79-97 Not Available [facility] ([facility]) [address] [place], [address], 09/07/2017 06:09:32 09/06/20 17 09/07/2017 CBC w/ auto diff MCH 29.5 pg 26.6-3 3.0 Not Available [facility] ([facility]) [address] [facility], [place], [address], 09/07/2017 06:09:32 09/06/20 17 09/07/2017 CBC w/ auto diff MCHC 33.1 g/dL 31.5-3 5.7 Not Available [facility] ([facility]) [address] [facility], [place], [address], 09/07/2017 06:09:32 09/06/20 17 09/07/2017 CBC w/ auto diff RDW 12.9 % 12.3-1 5.4 Not Available [facility] ([facility]) [address] [facility], [place], [address], 09/07/2017 06:09:32 09/06/20 17 09/07/2017 CBC w/ auto diff platelets 324 x10e3 /uL 150-37 9 Not Available [facility] ([facility]) [address] [place], [address], 09/07/2017 06:09:32 09/06/20 17 09/07/2017 CBC w/ auto diff neutrophils 53 % not estab. Not Available [facility] ([facility]) [address] [facility], [place], [address], 09/07/2017 06:09:32 09/06/20 17 09/07/2017 CBC w/ auto diff lymphs 36 % not estab. Not Available [facility] ([facility]) [address] [place], [address], 09/07/2017 06:09:32 09/06/20 17 09/07/2017 CBC w/ auto diff monocytes 8 % not estab. Not Available [facility] ([facility]) [address] [place], [address], 09/07/2017 06:09:32 09/06/20 17 09/07/2017 CBC w/ auto diff eos 2 % not estab. Not Available [facility] ([facility]) [address] [place], [address], 09/07/2017 06:09:32 09/06/20 17 09/07/2017 CBC w/ auto diff basos 1 % not estab. Not Available [facility] ([facility]) [address] [place], [address], 09/07/2017 06:09:32 09/06/2009/07/2017 CBC w/ auto diff immature cells JINRIKISHA DRIVER Not Available [facility] ([facility]) [address] [place], [address], 09/07/2017 06:09:32 09/06/2009/07/2017 CBC w/ auto diff neutrophils (absolute) 2.8 x10e3 /uL 1.4-7. 0 Not Available [facility] ([facility]) [address] [place], [address], 09/07/2017 06:09:32 09/06/20 17 09/07/2017 CBC w/ auto diff lymphs (absolute) 1.9 x10e3 /uL 0.7-3. 1 Not Available [facility] ([facility]) [address] [place], [address], 09/07/2017 06:09:32 09/06/20 17 09/07/2017 CBC w/ auto diff monocytes(ab solute) 0.4 x10e3 /uL 0.1-0. 9 Not Available [facility] ([facility]) [address] [place], [address], 09/07/2017 06:09:32 09/06/20 17 09/07/2017 CBC w/ auto diff eos (absolute) 0.1 x10e3 /uL 0.0-0. 4 Not Available [facility] ([facility]) [address] [facility], [place], [address], 09/07/2017 06:09:32 09/06/2009/07/2017 CBC w/ auto diff baso (absolute) 0.0 x10e3 /uL 0.0-0. 2 Not Available [facility] ([facility]) [address] [facility], [place], [address], 09/07/2017 06:09:32 09/06/2009/07/2017 CBC w/ auto diff immature granulocytes 0 % not estab. Not Available [facility] ([facility]) [address] [facility], [place], [address], 09/07/2017 06:09:32 09/06/2009/07/2017 CBC w/ auto diff immature grans (abs) 0.0 x10e3 /uL 0.0-0. 1 Not Available [facility] ([facility]) [address] [facility], [place], [address], 09/07/2017 06:09:32 09/06/2009/07/2017 CBC w/ auto diff NRBC JINRIKISHA DRIVER Not Available [facility] ([facility]) [address] [facility], [place], [address], 09/07/2017 06:09:32 09/06/2009/07/2017 CBC w/ auto diff hematology comments: JINRIKISHA DRIVER Not Available [facility] ([facility]) [address] [facility], [place], [address], 09/07/2017 06:09:32 09/06/2009/07/2017 CMP, serum or plasm a glucose, serum 72 mg/dL 65-99 Not Available [facility] ([facility]) [address] [facility], [place], [address], 09/07/2017 06:09:32 09/06/2009/07/2017 CMP, serum or plasm a BUN 12 mg/dL 6-20 Not Available [facility] ([facility]) [address] [facility] [place], [address], 09/07/2017 06:09:32 09/06/20 17 09/07/2017 CMP, serum or plasm a creatinine, serum 0.75 mg/dL 0.57-1 .00 Not Available [facility] ([facility]) [address] [facility] [place], [address], 09/07/2017 06:09:32 09/06/20 17 09/07/2017 CMP, serum or plasm a eGFR if nonafricn AM 112 mL/mi n/1.7 3 >59 Not Available [facility] ([facility]) [address] [facility] [place], [address], 09/07/2017 06:09:32 09/06/20 17 09/07/2017 CMP, serum or plasm a eGFR if africn AM 129 mL/mi n/1.7 3 >59 Not Available [facility] ([facility]) [address] [facility] [place], [address], 09/07/2017 06:09:32 09/06/20 17 09/07/2017 CMP, serum or plasm a BUN/creatini ne ratio 16 9-23 Not Available [facility] ([facility]) [address] [facility] [place], [address], 09/07/2017 06:09:32 09/06/2009/07/2017 CMP, serum or plasm a sodium, serum 143 mmol/ L 134-14 4 Not Available [facility] ([facility]) [address] [facility] [place], [address], 09/07/2017 06:09:32 09/06/2009/07/2017 CMP, serum or plasm a potassium, serum 5.2 mmol/ L 3.5-5. 2 Not Available [facility] ([facility]) [address] [facility] [place], [address], 09/07/2017 06:09:32 09/06/20 17 09/07/2017 CMP, serum or plasm a chloride, serum 103 mmol/ L 96-106 Not Available [facility] ([facility]) [address] [place], [address], 09/07/2017 06:09:32 09/06/20 17 09/07/2017 CMP, serum or plasm a carbon dioxide, total 22 mmol/ L 18-29 Not Available [facility] ([facility]) [address] [place], [address], 09/07/2017 06:09:32 09/06/2009/07/2017 CMP, serum or plasm a calcium, serum 9.6 mg/dL 8.7-10 .2 Not Available [facility] ([facility]) [address] [place], [address], 09/07/2017 06:09:32 09/06/2009/07/2017 CMP, serum or plasm a protein, total, serum 7.0 g/dL 6.0-8. 5 Not Available [facility] ([facility]) [address] [place], [address], 09/07/2017 06:09:32 09/06/20 17 09/07/2017 CMP, serum or plasm a albumin, serum 4.7 g/dL 3.5-5. 5 Not Available [facility] ([facility]) [address] [place], [address], 09/07/2017 06:09:32 09/06/2009/07/2017 CMP, serum or plasm a globulin, total 2.3 g/dL 1.5-4. 5 Not Available [facility] ([facility]) [address] [place], [address], 09/07/2017 06:09:32 09/06/2009/07/2017 CMP, serum or plasm a A/G ratio 2.0 1.2-2. 2 Not Available [facility] ([facility]) [address] [facility], [place], [address], 09/07/2017 06:09:32 09/06/20 17 09/07/2017 CMP, serum or plasm a bilirubin, total 0.6 mg/dL 0.0-1. 2 Not Available [facility] ([facility]) [address] [place], [address], 09/07/2017 06:09:32 09/06/20 17 09/07/2017 CMP, serum or plasm a alkaline phosphatase, S 75 IU/L 39-117 Not Available [facility] ([facility]) [address] [place], [address], 09/07/2017 06:09:32 09/06/20 17 09/07/2017 CMP, serum or plasm a AST (SGOT) 17 IU/L 0-40 Not Available [facility] ([facility]) [address] [place] [address], [place], [address], 09/07/2017 06:09:32 09/06/20 17 09/07/2017 CMP, serum or plasm a ALT (SGPT) 12 IU/L 0-32 Not Available [facility] ([facility]) [address] [place] [address], [address], 09/07/2017 06:09:32 06/06/20 15 06/06/2015 ultra sound , OB, trime ster 1 No observ ation record ed. [facility] (Imaging) [address], [place], [address], 06/08/2015 09:01:24 06/10/20 15 06/06/2015 imagi ng/beny ramirez tic resul t No observ ation record ed. [email or web address] Not Available 05/29 13:07:11 01/29/20 19 01/28/2019 MAMMO , diagn ostic , digit al, unila teral No observ ation record ed. [facility] [address], [place], [address], 01/29/2019 08:36:57 Result Notes None recorded. Problems Name Problem SNOMED Code Status Onset Date Resolution Date Notes Provider Name and Address Organization Details Recorded Time Constipat ion 10424201 Completed 08/02/2017 Removal Reason: resolved Dodie Awad PA-C Attn: Brooke segura,[address], [place], [address], [place] - [facility] 7 09:33:56 Amenorrhe a [id number] Completed 09/06/2017 Removal Reason: resolved w/ stopping OCP Dodie Awda PA-C Attn: Accountnick g,[address], [place], [address], [place] [facility] 7 09:16:18 Amenorrhe a [id number] Completed Mary mccartney, [place] - [facility] 6 16:54:09 Blindness of one eye Active 2016 Dodie Awad PA-C Attn: Accountnick g,[address] [facility], [place], [address], [place] [facility] 7 09:15:18 Problem Notes None recorded. Procedures Surgical History Date Name Laterality Status Provider Name and Address Organization Details Recorded Time 7 Date of Last Pap Smear completed SERENA Bland [place] [facility] 08/02/2017 09:09:51 6 delivery completed SERENA Bland [place] [facility] 08/02/2017 09:08:05 7 Other completed Sonya Branham LPN [place] - [facility] 04/13/2015 16:11:23 Imaging Results None recorded. Procedure Notes None recorded. Medical Equipment None Reported. Allergies Allergen ID Allergen Name Allergen Category Reaction Reaction Severity Criticality Documentation Date Start Date Code Code System Note Provider Name and Address Organization Details Recorded Time 53001 amoxicill in medicatio n rash Not available Not available 04/13/2015 723 [employer] CHINO [place], [place] - [facility] 5 16:11:23 Medications Name Sig Start Date Stop Date Status Note LastModified by Organization Details LastModified Time Colace 100 mg capsule Take by oral route. active Not Available Not Available No t Available hydrocodon e 5 mg-acetami nophen 325 mg tablet 08/02 completed Not Available Not Available Not Available Vitamin tablet Take 1 tablet every day by oral route. 08/02 completed Not Available Not Available Not Available hydrochlor othiazide 12.5 mg capsule Take 1 capsule every day by oral route in the morning. 09/10 completed severe AGUDELO Not Available Not Available Not Available Provera 10 mg tablet Take 1 tablet every day by oral route. 2014 active Not Available Not Available Not Avai lable 11/17 (28) 1 mg-20 mcg (21)/75 mg (7) tablet Take 1 tablet every day by oral route. 2014 active Not Available Not Available Not Avai lable Vitamin C once a day active Not Available Not Available No t Available 1 mg-20 mcg (24)/75 mg (4) tablet 08/02 completed Not Available Not Available Not Available Vitals Date Recorded Body height Body mass index (BMI) Body weight Systolic blood pressure Diastolic blood pressure Provider Name and Address Organization Details Last Updated DateTime 05/25/2015 162.56 cm 28.3 kg/m2 30302.74 105 g 122 mm[Hg] 76 mm[Hg] Sonya Branham LPN [facility] 5 09:36:04 Date Recorded Body height Body mass index (BMI) Body weight Systolic blood pressure Diastolic blood pressure Provider Name and Address Organization Details Last Updated DateTime 06/22/2015 162.56 cm 27 kg/m2 44335.43 9038 g 118 mm[Hg] 84 mm[Hg] Noemí Whitney MA [facility] 5 10:50:13 Date Recorded Systolic blood pressure Diastolic blood pressure Provider Name and Address Organization Details Last Updated DateTime 08/02/2017 130 mm[Hg] 90 mm[Hg] Dodie Awad PA-C Attn: Accounting,[address] [facility], [place], [address], [facility] 08/02/2017 09:31:03 Date Recorded Body height Body mass index (BMI) Body weight Heart rate Respiratory rate Body temperature Oxygen saturation Oxygen saturation in Arterial blood by Pulse oximetry Systolic blood pressure Diastolic blood pressure Provider Name and Address Organization Details Last Updated DateTime 162.56 cm 30.5 kg/m2 57607.2 9 g 103 /min 16 /min 98.2 [degF] 99 % 99 % 128 mm[Hg] 88 mm[Hg] SERENA Bland [facility] 7 09:12:46 Date Recorded Body height Body mass index (BMI) Body weight Heart rate Respiratory rate Body temperature Oxygen saturation Oxygen saturation in Arterial blood by Pulse oximetry Systolic blood pressure Diastolic blood pressure Provider Name and Address Organization Details Last Updated DateTime 162.56 cm 31.2 kg/m2 01507.0 9 g 116 /min 16 /min 98.7 [degF] 100 % 100 % 130 mm[Hg] 80 mm[Hg] Shruti Corey [facility] 7 08:54:53 Date Recorded Body height Heart rate Systolic blood pressure Diastolic blood pressure Provider Name and Address Organization Details Last Updated DateTime 09/10/2017 162.56 cm 113 /min 120 mm[Hg] 90 mm[Hg] Malissa Jamison [facility] 09/10/2017 16:21:55 Social History Question Answer Notes LastModified by Organizat ion Details LastModified Time Tobacco Smoking Status Never Smoker CHINO Sebastian, [facility] 04/13/2015 16:11:23 Is Blood Transfusion Acceptable In An Emergency? Yes Information not available 04/13/2015 What Is Your Level Of Caffeine Consumption? Occasional Coffee Information not available 08/02/2017 How Much Tobacco Do You Chew? None Information not available 04/13/2015 What Type Of Diet Are You Following? REGULAR Information not available 04/13/2015 Which Illicit Or Recreational Drugs Have You Used? Yusuf [email or web address] Information not available 09/06/2017 Education 2 Year College Informatio n not available 04/13/2015 Legally Blind In One Or Both Eyes? Yes Right Information not available 08/02/2017 Live Alone Or With Others? Alone Information not available 04/13/2015 Marital Status Single jayden Robertsatio n not available 08/02/2017 What Was The Date Of Your Most Recent Tobacco Screening? 09/10/2017 Information not available 05/22/2019 Performs Monthly Self-breast Exam? Yes Information not available 04/13/2015 Do You Use Protection During Sex? Usually Information not available 04/13/2015 What Is Your Relationship Status? Single Information not available 04/13/2015 Seat Belts Used Routinely Yes Information not available 04/13/2015 Are You Sexually Active? Yes Information not available 04/13/2015 How Much Tobacco Do You Smoke? No Information not available 08/02/2017 General Stress Level Medium Information not available 08/02/2017 Do You Use Sunscreen Routinely? Yes Information not available 04/13/2015 Sex: Unknown Functional Status Question Answer Note LastModified by Organizat ion Details LastModified Time What is your level of alcohol consumption? Occasional Information not available 04/13/2015 Are you currently employed? 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 Moderate walking Information not available 08/02/2017 Mental Status None recorded. Family History Relationship Description Onset Age of this Age Resolved Age Notes LastModified by Organization Details LastModified Time Mother Hypertensive disorder rreiter Not available 2014 10:44:11 Father Heart disease 55 rreiter Not available 2014 10:44:11 Medical History Condition Response Heart Problems N Other N High Blood Pressure Y Breast Cancer N Thyroid Problems N Kidney or Bladder Problems N GI Problems N Lung Disease N Depression N Acne N Eating Disorder N Breast Problem N Anemia N Anesthesia Complications N Headaches/Migraines N Anxiety Disorder N Diabetes N Ovarian Cancer N Blood Transfusions N Arthritis N Polyps N Infertility N Acid Reflux (GERD) N Cancer N Stroke N Abuse/Domestic Violence N Asthma N Endometriosis N High Cholesterol N Hepatitis N Heart Disease N Fibromyalgia N Pre-Eclampsia N Hypertension N Osteoporosis N Kidney Disease N Gynecological History Statement/Question Response Abnormal Pap N Flow Moderate STIs/STDs N HPV Vaccine Y Duration of Flow (days) 4 Age at Menarche 11 Current Control Method None Sexually Active? Y Menses Monthly N Date of Last Pap Smear 03/29/2017 Sexual Problems? N LMP Unknown Desired Control Method BCPs Obstetrics History GPAL:G 1 P 1 0 0 1 Type Value Full Term 1 Living 1 Total 1 Past Encounters Encounter ID Performer Location Encounter Start Date Encounter Closed Date Diagnosis/Indication Diagnosis SNOMED-CT Code Diagnosis ICD10 Code Diagnosis Note [id number] MD Adore Ding ([employer] OPERATOR) [address] [place] [address] 04/13/2015 15:47:31 04/13/2015 16:53:24 Gynecologic examination [id number] Normal female exam. Last pap done 2010. Pap done. Pt. never had fasting labs checked, ordered today. Venereal d isease screening [id number] test negative [id number] Amenorrhea 47686659 No p eriod x 3 mo. after stopping control. Using condoms almost always. UPT is negative today. Pt. admits to gaining some weight recently. Checking TSH. [id number] MD Adore Ding (SE[employer] OPERATOR) [address] [place] [address] 04/22/2015 09:26:04 04/29/2015 15:08:59 Amenorrhea [id number] No period x 3 mo. after stopping control. Using condoms almost always. UPT is negative today. TSH was normal. Will do progestero ne challenge test. Rx sent to pharmacy. Instructio ns discussed. Oral contr aceptive prescribed [id number] Pt. wants to get back on control. OK to start after withdrawal bleed d/w pt. Rx sent to pharmacy. Need to take it for 3 weeks before being protected from discussed. test negative [id number] Gynecologi c examination [id number] Pap was normal, dwp. Fasting blood work was normal, dwp. Venereal d isease screening 855532064 Vaginal culture was negative for GC/chlam, TV, yeast, and BV, dwp. STD panel was completely negative. Individual tests d/w pt. [id number] MD Adore Ding (SE[employer] OPERATOR) [address] [place] [address] 05/25/2015 09:23:16 05/25/2015 10:58:05 [id number] Diagnosis d/w pt. labs ordered. Rx PNVs sent. Dating US ordered. Pt. instructed to wait two more weeks to get it done or it may be too early to see anything with US. Pt. expressed understand ing and agreement. Amenorrhea [id number] No p eriod x 3 mo. after stopping control. Using condoms almost always. UPT was negative 04/22/15. TSH was normal. She was given a progestero ne challenge test starting 04/22/15 which did not yield a period. Planned to do an estrogen and progestero ne challenge test starting today. However, her UPT is positive. See below. [id number] MD Adore Ding (SE[employer] PR[employer] OPERATOR) [address] [place] [address] 06/22/2015 10:20:15 06/22/2015 12:39:50 [id number] See ACOG flow sheet [id number] MD Adore Fishman (Adult Med) [address] [place] [address] 08/02/2017 08:40:52 08/06/2017 11:43:44 Elevated blood-pressure reading without diagnosis of hypertension 768593535 R03.0 She has had a few BP over 140/90s, but has never checked at home, admits to some anxiety w/ going to clinics. Recommend she continue healthy diet, walking for exercise and following low salt diet. No medication s recommende d at this time. Instructed her to get a home BP automated machine (not wrist cuff) and check few times a week, different times of day and keep a log. Call if BP persistent ly above 140/90mmHg . She just stopped OCP a little over 2 weeks ago, if that is cause of elevated BP, should wash out from meds within 4 weeks. Body mass index 30+ - obesity 724307625 Z68.30 Recent weight gain likely due to changes in hormones with change of OCP and no longer breast feeding. Cont healthy diet, walking for exercise and montior weight now that she is off OCP. Amenorrhea [id number] N91. 2 OCP on hold for 3 months, f/u with gynecology as scheduled. will get records as labs were done at prior visits [id number] MD Adore Fishman (Adult Med) [address] [place] [address] 09/06/2017 08:40:04 09/10/2017 15:02:52 Benign essential hypertension 3318235 I10 persistent ly elevated diastolic pressure at home, especially in evenings, better in AM. Recommend starting low dose diuretic. Reviewed common side effects including dizziness/ lightheade dness, dry mouth. Cont to monitor BP at home once a week, call if any problems. Weight gain [id number] R63. 5 gained 4 lbs since last month, getting frustrated because she is eating healthy, not overeating or snacking and walking 10K steps a day. Has been off OCP almost 2 months, had first menstrual cycle in a long time this past month. Body mass index 30+ - obesity [id number] Z68.31 reviewed diet w/ pt, recommend she cont low fat, low calorie diet and walking, see if being off OCP and getting her first period will trigger weight loss. [id number] MD Adore Fishman (Adult Med) [address] [place] [address] 09/10/2017 15:46:36 09/11/2017 13:29:20 Benign essential hypertension [id number] I10 STOP HCTZ due to severe AGUDELO over the weekend. Cont low salt diet, exercise. log BP readings this week onto portal and we can see if she needs to start a different medication . diastolic mildly elevated today. Headache [id number] R51 severe AGUDELO that patient feels is related to HCTZ 12.5mg. Since stopping med AGUDELO is getting better. Health Concerns Section Related Observation LastModified by Organization Detai ls LastModified Time None Recorded Concern Status LastModified by Organization Details LastModified Time None Recorded Advance Directives Directive None Recorded Payers Encounter Date Sequence Insurance Name Policy Number Policy Samuel Covered Member ID Samuel Member ID Guarantor Name 05/25/2015 1 [employer] [facility] - [facility] SIGNATURE ADMINISTRATORS (PPO) [id number] Shira Barragan [id number] Shira Barragan 06/22/2015 1 [place] Shira Barragan [id number] Shira Barragan 08/02/2017 1 [facility] PRIOR TO 04/28/2021 (MEDICAID REPLACEMENT - HMO) Shira Barragan [id number] Shira Barragan 09/06/2017 1 [facility] PRIOR TO 04/28/2021 (MEDICAID REPLACEMENT - HMO) Shira Barragan [id number] Shira Barragan 09/10/2017 1 [facility] PRIOR TO 04/28/2021 (MEDICAID REPLACEMENT - HMO) Shira Barragan [id number] Shira Barragan Notes Date Note Type Note Provider Name and Address Organization Details Recorded Time 5 text/html Pt. was given progesterone challenge for amenorrhea on 04/22/15 and still has not started her period. She previously had normal labs. Betty Holley [facility] 07/27/2015 20:31:41 7 text/html HypertensionReported bypatient.Quality:some throbbing AGUDELO sxs but never checked ot see if BP elevated during those times. 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 BP normalized. Stopped OCP 2 1/2 weeks ago 150/90s. A times feels throb in head, not sure if BP is high. Heart can beat faster. Was on progesterone while breast feeding; 3mo ago switched to something that she can get a period.Mom has HTN, not sure when dx. h/o amenorrhea, got when she was started on oral contraceptives. no sleep issues, can calm herself when she feels anxious.rare caffeine/coffee. tea or coffee 4-5 times/month. no added saltfeels she has gained 20lbs in last 6mo. no change to diet. h/o constipation , colonoscopy ok. increased fiber & after dtr it resolved. No skin hair/nail changes. no heat/cold intolerance. No abnormal fatigue Doide Awad PA-C Attn: Accounting,[address] [facility], [place], [address], [facility] 08/03/2017 11:17:20 7 text/html Was having trouble with BP cuff initially, brought numbers from home and diastolic almost always above 90 except for a few days. Systolic was OK. Says she has felt fine, no known edema, no CP, no palpitations. No extra stressors, feels work is stressful, but is ok when she gets home. BP higher in evenings when she first gets home. She also is worried she keeps gaining weight. Nothing has changed, eating lean protein, not eating a lot and still making sure she walks 10K steps using her fit bit. Had her first period this past month in a long time, has been off OCP for almost 2 months. Dodie Awad PA-C Attn: Accounting,[address] [facility], [place], [address], [facility] 09/06/2017 09:23:46 7 text/html severe AGUDELO to posterior head after starting diuretic. She last took it last night, almost went to ER for severe pain. took ibuprofen last night, didn't take diuretic today and AGUDELO is getting better. couldn't go to work today due to fatigue, no sleep w/ AGUDELO Dodie Awad PA-C Attn: Accounting,[address] [facility], [place], [address], [facility] 09/10/2017 21:37:08 OBGyn Episode Ob Episode Information Episode Created Date Number of Fetuses Patient Bloodtype Patient rh Status Prepregnancy Weight lbs Domestic Partner Domestic Partner Phone Father Name Retail Event Assistant Status 05/26/20 15 1 O Negative Jim Hudson CLOSED Fetus Data First Name Last Name Admitted to NICU Weight (g) Sex Living Outcome Pediatric Complications Fetus ID Race Codes Race Delivery Type Haroon Conrad y false 3005.04 [phone] F true Full Term [id number] White Problems Problem Notes Rh negative-->Rhogam at 28 w eeks Problem Name Start Date End Date Resolution Snomed Code Not e Amenorrhea [id number] George Calculation Initial George Date Initial Exam Date Initial Exam Provider Initial Ultrasound Date Last Menstrual Period Date Ultra Sound Weeks Gestation 01/11/2016 05/25/2015zqrgvmfvk14 06/06/2015 04/04/2015 8 Eighteen To Twenty Week George Update Ultra Sound Date Fundal Height At Umbil Quickening Date Ultra Sound Latest Weeks Gestation Final George Confirmed By Final George Confirmed Date Final George Date Ultra Sound Latest Days Gestation 06/06/20 15 8 [id number] 06/22/2015 01/11/20 16 5 Pre- Flowsheet Flowsheet Date 06/22/2015 [place] Score Blood Edema Fundus Height Fundus Units Glucose Ketones Leukocytes Nitrite Labor Signs Protein Cervic Dilation Cervic Effacement Cervic Station Type Weight in lbs Pre/Post Dialysis Refused [id number] BP Diastolic BP Location Tested BP Systolic BP Type 84 118 sitting Fetus Heart Rate Present A Absent Fetus Movement A No Comments Dating by 8 5/7 wk US. Vagin al culture done. No FHTs by Doppler likely d/t retroverted uterus and early GA, dwp. Normal labs discussed. RTO PRN + 4 weeds. Menstrual History Last Menstrual Date Menses Monthly On Bcp Conception Prior Menses Frequency Hcg Plus Date Menarche Onset Age 0604/04/2015 Genetic Screening And Infection History Question Response Note Patient's Age Will Be 35 Yea rs Or Older At Estimated Date of Delivery false Thalassemia (Ecuadorean, Irish, Mediterranean, Or Background): MCV < 80 false Neural Tube Defect (Meningom yelocele, Spina Bifida, Or Anencephaly) false Congenital Heart Defect false Down Syndrome false Gianni-Sachs (eg, Hoahaoism, Cajun, Telugu-Somali) f alse Genei Disease false Sickle Cell Disease Or Trait () false Hemophilia Or Other Blood Disorders false Muscular Dystrophy false Cystic Fibrosis false Davidson's Chorea false Mental Retardation/Autism false If Yes, Was Person Tested For Fragile X? false Other Inherited Genetic Or Chromosomal Disorder false Maternal Metabolic Disorder (eg, Type 1 Diabetes, PKU) false Patient Or Baby's Father Had A Child With Defects Not Listed Above false Recurrent Loss, Or A Stillbirth false Medications (including Suppl ements, Vitamins, Herbs, OTC Drugs), Illicit/Recreational Drugs, Alcohol true If Yes, Agent(s) And Strength/Dosage true one every day Any Other Genetic History false Live With Someone With TB Or Exposed To TB false Patient Or Partner Has History Of Genital Herpes false Rash Or Viral Illness Since Last Menstrual Perio d false History Of STD, Gonorrhea, Chlamydia, HPV, Syphi lis false Other Infection History false Delivery Information Delivery Date Delivery Type Labor Anesthesia Weeks Gestation Incision Type Labor Labor Length Hrs Delivered By Post Complications Tubal Sterilization Discharge Date Comments 6 Induce d 37.[address] Reyes Reyna Failed induction led to . Pt was seen 2x by Dr. Holley while . Discharge Information Feeding Method Contraceptive Method Maternal HG B and HCT Levels Breast
--- OUTSIDE RECORDS SUMMARY | 2025-03-31 08:45 | XMS_ITS | Referral Summary ---
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 Gender Identity Not on file Sexual Orientation [...] 05/13/2024 2:56 PM CDT Plan of Treatment Not on file Insurance [facility] CHOICE PLUS [facility] HMO/PPO Address: [address] [place] [phone] [facility] CHOICE PLUS [facility] HMO/PPO Address: [address] [place] [id number] Care Teams Knifeman Relationship Specialty Start Date End Date Serena Gallegos NP [address] [place] [address] [place] [address] PCP - General Nurse Practitioner 02/20/24 Negar Carmona PA [phone] [place] [address] Physician Behavioral Technician Colon and Rectal Surgery 02/27/24 Ander Sadler MD [address] [place] [address] Referring Physician Gastroenterology 02/27/24
[2025-03-31 22:57] LABS: Thyroid Stimulating Hormone Reflex 0.519 uIU/mL (0.465-4.68)
[2025-03-31 23:00] LABS: Alanine Aminotransferase 15 U/L (6-35); Albumin Level 4.4 g/dL (3.5-5.1); Alkaline Phosphatase 52 U/L (38-126); Anion Gap 7 mmol/L (4-12); Aspartate Amino Transferase 65 U/L (14-36); Bilirubin,Total 0.6 mg/dL (0.2-1.3); Blood Urea Nitrogen 11 mg/dL (7-17); Calcium 9.4 mg/dL (8.4-10.2); Carbon Dioxide 26 mmol/L (22-30); Chloride 104 mmol/L (98-107); Cholesterol 153 mg/dL (0-200); Estimated Glomerular Filt Rate > 60; Glucose 83 mg/dL (65-110); HDL Direct 63 mg/dL; Potassium 4.1 mmol/L (3.4-5.0); Sodium 137 mmol/L (137-145); Total Protein 6.9 g/dL (6.3-8.2); Triglycerides 89 mg/dL (<150)
[2025-03-31 23:11] LABS: LDL Cholesterol Direct 55 mg/dL
== END 2025-03-31 08:41 | disposition home or self-care (01) ==
LOC: ANHBWCLAB 08:41
PROVIDERS: PCP Nurse Practitioner Adult Health; Visit Provider Nurse Practitioner Adult Health
DX: I10 Essential (primary) hypertension (principal)
CPT/HCPCS: 36415; 80053; 80061; 83735; 84443

== ENCOUNTER 2025-04-18 10:55 | Emergency (ER) | payer OTHER, SELFPAY ==
[2025-04-18 10:58] VITALS: BP 120/79; PULSE 106; RESP 16; TEMP 37; O2SAT 100
--- NOTE | 2025-04-18 11:56 | ED.SKABFB ---
HPI - Skin/Abscess/Foreign Bdy General Chief complaint: Skin/Abscess/Foreign Body Stated complaint: Rash Time Seen by Provider: 04/18/25 11:15 Source: patient and RN notes reviewed Mode of arrival: ambulatory Limitations: no limitations History of Present Illness HPI narrative: 30-year-old female presents Express Care complaining of pruritic rash throughout her entire body. Patient's other as is persistent for last 2-3 weeks. Patient 1st thought was related to her son burn which has resolved from her legs. Patient states she has the pruritic rash scattered throughout her bilateral arms, legs, trunk and partial her face. Patient denies doing any yd work or being exposed any poison contreras or poison oak. Patient has tried ugib-pia-hpwnrka antihistamines without relief. Related Data Allergies Allergy/AdvReac Type Severity Reaction Status Date / Time amoxicillin Allergy Rash/hives Verified 04/18/25 10:58 Review of Systems Review of Systems: CONSTITUTIONAL: Denies fever, chills, or sweats. EYES: Denies visual changes, redness, or discharge. ENT: Denies rhinorrhea, congestion, sore throat, or otalgia. CARDIOVASCULAR: Denies chest pain, palpitations, or edema. RESPIRATORY: Denies cough or dyspnea. GASTROINTESTINAL: Denies abdominal pain, nausea, vomiting, or diarrhea. GENITOURINARY: Denies dysuria or hematuria. SKIN: Positive for rash and itching. MUSCULOSKELETAL: Denies back pain, joint pain, or myalgia. NEUROLOGIC: Denies headache, numbness, or weakness. PSYCHIATRIC: Denies anxiety or depression. All other systems reviewed are negative, except as documented in HPI. [facility] Past Medical History Medical History Hemorrhoidal skin tag External bleeding hemorrhoids HTN (hypertension) PCOS (polycystic ovarian syndrome) Surgical History Surgical History History of Family History Family History Mother Alcohol abuse Hypertension Heart disease Grandparent Alcohol abuse Cancer Diabetes mellitus Social History Social History Smoking status: Never smoker Alcohol intake: current Alcohol use details: socially Substance use: never Substance use type: does not use Lack of Transportation: No Lack of Food: Never True Current Housing: I Have Housing Concerned About Future Housing: No Difficulty Paying Gas/Electric Bills: No Difficulty Paying for Meds: No Currently Unemployed: No Education: Bachelor's Degree Difficulty w/ Childcare or Family Care: No Living arrangements: with family Gender identity (if verbalized by the patient): Female Sexual Orientation (if Verbalized by the Patient): Straight or Heterosexual Spiritual care concerns: No Agree to blood products: Yes Comments At the time of my signature, I reviewed and agree with the nursing past medical, surgical, social, and family history. There is no relevant family history pertinent to the patient complaint. Exam Narrative: GENERAL: This is a well-nourished, well-developed adult, in no apparent distress. They are non ill-appearing, nontoxic appearing. HEAD: normocephalic, atraumatic. EYES: Sclera clear/white. Conjunctiva normal. Vision is grossly intact. Extraocular movements intact EARS: External ears normal, Hearing grossly intact. NOSE: External nose normal THROAT: Mucous membranes moist NECK: Neck supple, CARDIOVASCULAR: Regular rate and rhythm RESPIRATORY: Respiratory rate normal, respiratory effort nonlabored, no respiratory distress SKIN: Erythematous macular papular rash scattered throughout the patient's arms, legs, posterior left knee,, right cheek area, in abdomen. No blistering, no exudate, nontender to palpate, skin is indurated in some areas. Area of fluctuance. Rash not to touch. NEURO: awake, alert, and oriented to person, place and time. There were no obvious focal neurologic abnormalities. EXTREMITIES: No joint tenderness, effusion, or edema noted. BACK: Nontender without deformity. Course Course Emergency Course: Portions of this record may have been created with voice recognition software Level of Care: Express Care Visit Vital Signs Vital signs: Vital Signs Temperature 98.6 F 04/18/25 10:58 Pulse Rate 106 H 04/18/25 10:58 Respiratory Rate 16 04/18/25 10:58 Blood Pressure 120/79 04/18/25 10:58 Pulse Oximetry 100 04/18/25 10:58 Oxygen Delivery Room Air 04/18/25 10:58 Temperature 98.6 F 04/18/25 10:58 Pulse Rate 106 H 04/18/25 10:58 Respiratory Rate 16 04/18/25 10:58 Blood Pressure 120/79 04/18/25 10:58 Pulse Oximetry 100 04/18/25 10:58 Oxygen Delivery Room Air 04/18/25 10:58 Reviewed MDM - Skin/Abscess/Foreign Bdy MDM Narrative Medical decision making narrative: Rash likely contact dermatitis. Will prescribe Kenalog cream and a short course of prednisone. Patient has appointment on Sunday with her PCP to further assess her rash. Discussed physical exam findings. Advised supportive measures and signs/symptoms to go to the ER. Pt is appropriate for outpt treatment and f/u. Differential Diagnosis Differential diagnosis: Likely cellulitis, eczema and contact dermatitis Critical Care Time Critical Care Time Critical Care Time: No Discharge Plan Discharge Clinical Impression: Contact dermatitis Qualifiers: Contact dermatitis type: unspecified Contact dermatitis trigger: unspecified trigger Qualified Code(s): L25.9 - Unspecified contact dermatitis, unspecified cause Patient Disposition: Home Condition: Stable Instructions: Contact Dermatitis (ED), Eczema (ED) Additional Instructions: Take the prednisone as directed. Take it in the morning take it with food. You may apply the Kenalog cream to the affected area. May use Claritin, Zyrtec, Benadryl as needed for itchiness symptoms or allergies. Follow-up with your PCP on Sunday as scheduled. If you develop any worsening redness, swelling, you developed green yellow discharge, fevers, pain, swelling to the face, lips, tongue, breathing problems, wheezing, or any other concerns please go to the ER immediately. Patient Language: Cymraes Prescriptions: New prednisone 20 mg tablet 40 mg PO DAILY 5 Days Qty: 10 0RF triamcinolone acetonide 0.1 % cream 1 applic topical BID 7 Days Qty: 453.6 0RF Rx Instructions: Apply to affected area, do not apply to face. No Action lisinopril 20 mg tablet See Rx Instructions .ROUTE .COMPLEX Qty: 90 3RF Dose Instruction: TAKE 1 TABLET BY MOUTH DAILY Rx Instructions: TAKE 1 TABLET BY MOUTH DAILY Follow-up/Referrals: Serena Gallegos APRN [Primary Care Provider] - Time of Disposition: 11:30
== END 2025-04-18 11:32 | disposition home or self-care (01) ==
PROVIDERS: PCP Nurse Practitioner Adult Health
DX: L25.9 Unspecified contact dermatitis, unspecified cause (principal); I10 Essential (primary) hypertension
CPT/HCPCS: 99213; G0463

== ENCOUNTER 2025-05-21 12:55 | Outpatient (CLI) | payer OTHER, SELFPAY ==
--- OUTSIDE RECORDS SUMMARY | 2025-05-21 13:00 | XMS_ITS | Clinical Summary ---
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 Gender Identity Not on file Sexual Orientation [...] Td or Tdap) 03/28/2017 03/28/2007 Influenza Vaccine (#1) 2025 09/24/2012 Hepatitis B Screening Completed 1993 , 1993, 1993 Varicella Vaccines Completed 05/28/2007, 04/24/1995 HPV Vaccines Completed 10/01/2007, 05/28/2007, 03/28/2007 Pneumococcal vaccine <65 Aged Out No longer eligible based on patient's age to complete this topic Insurance [address] [place] [id number] [facility] CHOICE PLUS [facility] CHOICE PLUS Care Teams Supervisor Of Instruction Relationship Specialty Start Date End Date Serena Gallegos NP [facility] [address] PCP - General Nurse Practitioner 02/20/24 Negar Carmona PA [phone] [place] [address] Physician Lumber Tailer Colon and Rectal Surgery 02/27/24 Ander Sadler MD [address] [facility] [address] [facility] [address] [place] [address] Referring Physician Gastroenterology 02/27/24
--- OUTSIDE RECORDS SUMMARY | 2025-05-21 13:00 | XMS_ITS | Clinical Summary ---
Author Organization [facility] Address [address] [place] [address] Phone Care Team Providers Care Surgical Dressing Maker Name Role Phone Hai Zaman MD Primary Care Provider [phone] Allergies Active Allergy Reactions Criticality Noted Date [...] Cervical Cancer Screening (CCS) 2023 HPV/Cotest 2023 SARS-COV-2 Immunization ( season) 2024 Influenza Immunization (#1) 2025 Respiratory Syncytial Virus (RSV) Immunization (Adult) (1 - 1-dose 75+ series) 02/14/2068 Hepatitis B Immunization Completed 993, 1993, 1993 DTaP/Tdap/Td Immunization Discontinued 03/28/2007 TdaP Immunization Completed 03/28/2007 Human Papillomavirus (HPV) Immunization Completed 10/01/2007, 05/28/2007, 03/28/2007 Meningococcal Immunization (ACWY) Aged Out 10/01/2007 No longer eligible based on patient's age to complete this topic Pneumococcal Immunization Combined Aged Out No longer eligible based on patient's age to complete this topic Rotavirus Immunization Aged Out No lo nger eligible based on patient's age to complete this topic Medical Devices Implanted Type Area Meat Clerk Device Identifier Shelf Expiration Date Model / Serial / Lot [place] Suture Fiberstitch Polyester Meniscal 24deg Low-Profile Ergonomic Handle - [id number] Implanted:Qty: 1 on 03/15/2023 by Crescencio Blas MD at [facility] IMPLANT Right: Knee [employer] 05/28/2027 AR-4570-24 / [id number] / [id number] Fiberstitch Implanted:Qty: 1 on 03/15/2023 by Crescencio Blas MD at [facility] Right: Knee [employer] 01/26/2027 AR-4570 / [id number] / [id number] Insurance MEDICAID [place] Care Teams Surgical Dressing Maker Relationship Specialty Start Date End Date Hai Zaman MD [address] [place] [address] PCP - General Family Medicine 05/08/22
--- OUTSIDE RECORDS SUMMARY | 2025-05-21 13:00 | XMS_ITS | Referral Summary ---
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 Gender Identity Not on file Sexual Orientation [...] Plan of Treatment Not on file Insurance [facility] CHOICE PLUS [facility] CHOICE PLUS Care Teams Knit Goods Mender Relationship Specialty Start Date End Date Serena Gallegos NP [address] [place] [address] [place] [address] PCP - General Nurse Practitioner 02/20/24 Negar Carmona PA [address] [place] [phone] [place] [address] Physician Drawing In Hand Colon and Rectal Surgery 02/27/24 Ander Sadler MD [address] [place] [address] Referring Physician Gastroenterology 02/27/24
--- OUTSIDE RECORDS SUMMARY | 2025-05-21 13:00 | XMS_ITS | Data Portability ---
Author Organization 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 [email or web address] Not available 12/31/2024 16:17:21 Plan of Treatment Reminders Order Date Submit Date Provider Last Modified By Organization Details Last Modified Time Details Appointments None recorded. Lab None recorded. Referral pelvic floor therapy referral 2023 024 [email or web address] [facility], [address], [address], [place], [address], 4 09:28:29 Procedures None recorded. Surgeries None recorded. Imaging US, pelvis 2023 024 [email or web address] [facility], [address], [place], [address], 4 19:59:08 US, transvagina l 2023 024 [email or web address] [facility], [address], [place], [address], 4 19:59:08 US, pelvis, complete 2023 024 [email or web address] [facility], [address], [place], [address], 4 15:17:30 Medication Orders celecoxib 200 mg capsule 2023 024 [email or web address] #[id number], [address], [place], [place], [id number], 5 16:22:52 gabapentin 100 mg capsule 2023 024 [facility] #[id number], [address], [place], [place], [id number], 5 16:23:04 Prometrium 200 mg capsule 2020 021 [place] [address] [facility] #[id number], [address], [place], [place], [id number], 4 16:49:06 Patient TargetsNo targets recorded. Patient InstructionsNo instructions recorded. Reason for Referral Pelvic Floor Therapy Referra l for Pain in pelvis Pelvic Pain-women's health pelvic floor therapy Referring Physician: Erika Bravo, COMMERCIAL ARTIST, Encounter Date: 12/20/2023 Results Created Date Observation Date Name Description Value Unit Range Abnormal Flag Note LastModifiedBy Organization Detail LastModifiedTime 12/20/19 24 12/20/2023 IMAGE GUIDE D PAP AND HPV REGAR DLESS image guided Pap, HPV regardless of Pap result SEE RESULT S BELOW CASE REPOR T: Cytol ogy Gynec ologi martha Repor t Case: [id number] Autho poncho imelda Provi mateo: Walter Allen Colle cted: 12/20 1713 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 FINAL DIAGN OSIS: Negat filomena for [...] as clini [place]. Not Available [facility] (Lab) [address], [place], [address], 12/26/2023 17:49:51 01/01/20 25 12/31/2024 IMAGE GUIDE D PAP AND HPV REGAR DLESS image guided Pap, HPV regardless of Pap result SEE RESULT S BELOW CASE REPOR T: Cytol ogy Gynec ologi martha Repor t Case: [id number] Autho poncho g Provi mateo: Gilson Nelson MD Colle [...] nent was confi rmed by an addit derick buckner. ----- ----- ----- ----- ----- ----- ----- ----- ----- ----- ----- ----- ----- ----- ----- ----- ----- ---- FINAL DIAGN OSIS: Negat filomena for Intra epith eliryan espinosa or Marcel winters ([facility]) . Elect iesha ansari by Delores Martínez [...] as clini [place]. Not Available [facility] (Lab) [address], [place], [address], 01/05/2025 09:44:38 12/27/19 24 12/27/2023 US, pelvi s No observ ation record ed. [email or web address] [facility] [address], [place], [address], 12/27/2023 17:05:47 12/27/19 24 12/27/2023 US, trans vagin al No observ ation record ed. [email or web address] [facility] [address], [place], [address], 12/27/2023 17:05:35 12/27/19 24 12/27/2023 US, pelvi s No observ ation record ed. DOMINIC [place] [address], [place], [id number], 01/08/2024 11:48:31 Result Notes None recorded. Problems Name Problem SNOMED Code Status Onset Date Resolution Date Notes Provider Name and Address Organization Details Recorded Time Pregnanc y test positive 877162054 Completed 201411/24/2020 Pregnanc y examinat ion or test, positive result;R ecorded Elsewher e: No Locat ion: [facility] S ource: EHR Custodial Operations Manager jonas: N Viktoria ce ID: 0001 Matthew lable Time: 09:15:00 AM Sharla mccartney, [facility] 10:41:06 Primigra karina [id number] Completed 201411/24/2020 Supervis ion of normal first pregnanc y;Record ed Elsewher e: No Locat ion: [facility] S ource: EHR Custodial Operations Manager jonas: N Viktoria ce ID: 0001 Matthew lable Time: 09:15:00 AM Sharla mccartney, [facility] 10:41:14 Antenata l screenin g Completed 201411/24/2020 ANTENATA L SCREENIN G NEC;Jono rded Elsewher e: No Locat ion: [facility] S ource: EHR Custodial Operations Manager jonas: N Viktoria ce ID: 0001 Matthew lable Time: 08:45:00 AM Sharla Corrigan bib, [facility] 10:39:35 Thyroid disorder screenin g Completed 201411/24/2020 Screenin g for thyroid disorder s;Record ed Elsewher e: No Locat ion: [facility] S ource: EHR Custodial Operations Manager jonas: N Viktoria ce ID: 0001 Matthew lable Time: 09:30:00 AM Sharla mccartney, [facility] 10:41:34 Pregnanc y, childbir th and puerperi um finding Completed 201411/24/2020 Encounte r for supervis ion of normal first pregnanc y, first trimeste r;Record ed Elsewher e: No Locat ion: [facility] S ource: EHR Custodial Operations Manager jonas: N Camiloti ce ID: 0001 Matthew lable Time: 09:30:00 AM Sharla mccartney, [facility] 01/27/202 1 10:41:08 Pregnanc y, childbir th and puerperi um finding Completed 201511/24/2020 Encounte r for supervis ion of normal first pregnanc y, third trimeste r;Record ed Elsewher e: No Locat ion: [facility] S ource: EHR Custodial Operations Manager jonas: N Camiloti ce ID: 0001 Matthew lable Time: 08:30:00 AM Sharla mccartney, [facility] 10:41:11 Hyperten sive disorder Completed 201511/24/2020 Unspecif ied maternal hyperten farhana, third trimeste r;Record ed Elsewher e: No Locat ion: [facility] S ource: EHR Custodial Operations Manager jonas: N Camiloti ce ID: 0001 Matthew lable Time: 02:00:00 PM Sharla mccartney, [facility] 10:40:28 Gestatio n period, 31 weeks [id number] Completed 201511/24/2020 31 weeks gestatio n of pregnanc y;Record ed Elsewher e: No Locat ion: [facility] S ource: EHR Custodial Operations Manager jonas: N Camiloti ce ID: 0001 Matthew lable Time: 02:00:00 PM Sharla mccartney, [facility] 10:39:59 Gestatio n period, 32 weeks [id number] Completed 201511/24/2020 32 weeks gestatio n of pregnanc y;Record ed Elsewher e: No Locat ion: [facility] S ource: EHR Custodial Operations Manager jonas: N Camiloti ce ID: 0001 Matthew lable Time: 08:30:00 AM Sharla mccartney, [facility] 1 10:40:02 Pregnanc y-induce d hyperten farhana Completed 201502/25/2021 Gestatio nal htn w/o signific ant proteinu patito, third trimeste r;Record ed Elsewher e: No Locat ion: [facility] S ource: EHR Custodial Operations Manager jonas: N Practi ce ID: 0001 Matthew lable Time: 09:30:00 AM Sharla mccartney, [facility] 15:03:08 Gestatio n period, 33 weeks [id number] Completed 201511/24/2020 33 weeks gestatio n of pregnanc y;Record ed Elsewher e: No Locat ion: [facility] S ource: EHR Custodial Operations Manager jonas: N Practi ce ID: 0001 Matthew lable Time: 08:30:00 AM Sharla mccartney, [facility] 10:40:04 Gestatio n period, 34 weeks [id number] Completed 201511/24/2020 34 weeks gestatio n of pregnanc y;Record ed Elsewher e: No Locat ion: [facility] S ource: EHR Custodial Operations Manager jonas: N Practi ce ID: 0001 Matthew lable Time: 08:30:00 AM Sharla mccartney, [facility] 10:40:06 Hyperten farhana in the obstetri c context Completed 201511/24/2020 Pre-exis ting essentia l hyperten farhana complica ting pregnanc y, third trimeste r;Record ed Elsewher e: No Locat ion: [facility] S ource: EHR Custodial Operations Manager jonas: N Practi ce ID: 0001 Matthew lable Time: 09:00:00 AM Sharla mccartney [facility] 1 10:41:49 Gestatio n period, 35 weeks [id number] Completed 201511/24/2020 35 weeks gestatio n of pregnanc y;Record ed Elsewher e: No Locat ion: [facility] S ource: EHR Custodial Operations Manager jonas: N Practi ce ID: 0001 Matthew lable Time: 08:30:00 AM Sharla mccartnye [facility] 10:40:08 Gestatio n period, 36 weeks [id number] Completed 201511/24/2020 36 weeks gestatio n of pregnanc y;Record ed Elsewher e: No [facility]: [facility] Custodial Operations Manager jonas: N Practi ce ID: 0001 Matthew lable Time: 09:30:00 AM Sharla mccartney, [facility] 10:40:10 heart finding Completed 201511/24/2020 Abnlt in heart rate and rhythm comp labor and delivery ;Practic e ID: 0001 Sharla mccartney, [facility] 10:39:55 Single live from singleto n pregnanc y [id number] Completed 201511/24/2020 Single live ;Pr actice ID: 0001 Sharla mccartney, [facility] 10:41:26 Postproc edural state finding [id number] Completed 201511/24/2020 Other specifie d postproc edural states;R ecorded Elsewher e: No Locat ion: [facility] S ource: EHR Custodial Operations Manager jonas: N Practi ce ID: 0001 Matthew lable Time: 01:45:00 PM Sharla mccartney, [facility] 10:40:52 Pregnanc y test negative [id number] Completed 201511/24/2020 Encounte r for pregnanc y test, result negative ;Recorde d Elsewher e: No Locat ion: [facility] S ource: EHR Custodial Operations Manager jonas: N Practi ce ID: 0001 Matthew lable Time: 01:00:00 PM Sharla mccartney [facility] 10:41:03 Lochia finding Completed 03/22/ 2016 11/24/2020 Encounte r for routine postpart um follow-u p;Viktoria ce ID: 0001 Sharla Corrigan bib, [facility] 10:40:35 Hyperten sive disorder [id number] Completed 201511/24/2020 Essentia l (primary ) hyperten farhana;Rec orded Elsewher e: No [facility]: EHR Custodial Operations Manager jonas: N Practi ce ID: 0001 Matthew lable Time: 01:30:00 PM Sharla mccartney, [facility] 1 10:40:31 Screenin g for malignan t neoplasm of cervix Completed 201611/24/2020 Encounte r for screenin g for malignan t neoplasm of cervix;R ecorded Elsewher e: No Locat ion: [facility] S ource: EHR Custodial Operations Manager jonas: N Viktoria ce ID: 0001 Matthew lable Time: 10:15:00 AM Sharla mccartney, [facility] 1 10:41:22 Body mass index 25-29 - overweig ht [id number] Completed 201611/24/2020 Body mass index (BMI) 27.0-27. 9, adult;Re corded Elsewher e: No Locat ion: [facility] S ource: [facility] jonas: N Camiloti ce ID: 0001 Matthew lable Time: 10:15:00 AM Sharla mccartney [facility] 10:39:39 Uses combined oral contrace ption [id number] Completed 201611/24/2020 Encounte r for initial prescrip tion of contrace ptive pills;Re corded Elsewher e: No Locat ion: [facility] S ource: EHR Custodial Operations Manager jonas: N Camiloti ce ID: 0001 Matthew lable Time: 10:15:00 AM Sharla mccartney [facility] 10:39:48 Elevated blood-pr essure reading without diagnosi s of hyperten farhana [id number] Completed 201602/25/2021 Elevated blood-pr essure reading, without diagnosi s of hyperten farhana;Rec orded Elsewher e: No Locat ion: [facility] S ource: EHR Custodial Operations Manager jonas: N Camilojoaquin ce ID: 0001 Matthew lable Time: 04:15:00 PM Sharla mccartney, [facility] 15:03:04 Body mass index 30+ - obesity [id number] Completed 201711/24/2020 Body mass index (BMI) 30.0-30. 9, adult;Re corded Elsewher e: No Locat ion: [facility] S ource: EHR Custodial Operations Manager jonas: N Camiloti ce ID: 0001 Matthew lable Time: 01:00:00 PM Sharla mccartney, [facility] 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 S ource: EHR Custodial Operations Manager jonas: N Camilojoaquin ce ID: 0001 Matthew lable Time: 01:00:00 PM Sharla Corrigan bib, [facility] 10:41:31 Amenorrh ea [id number] Completed 201702/25/2021 Amenorrh ea, unspecif ied;Jono rded Elsewher e: No Locat ion: [facility] S ource: EHR Custodial Operations Manager jonas: N Camiloti ce ID: 0001 Matthew lable Time: 01:00:00 PM Sharla mccartney, [facility] 15:03:01 Gestatio n less than 9 weeks [id number] Completed 201711/24/2020 Less than 8 weeks gestatio n of pregnanc y;Record ed Elsewher e: No Locat ion: [facility] S ource: [facility] jonas: N Camilojoaquin ce ID: 0001 Matthew lable Time: 10:45:00 AM Sharla Krishnamurthytz bib, [facility] 10:39:57 Secondar y amenorrh ea [id number] Completed 201711/24/2020 Secondar y amenorrh ea;Recor ded Elsewher e: No Locat ion: [facility] S ource: [facility] jonas: N Camiloti ce ID: 0001 Matthew lable Time: 10:00:00 AM Sharla Corrigan [facility], [facility] 10:41:24 Pregnanc y detectio n examinat ion Completed 201711/24/2020 Encounte r for pregnanc y test, result positive ;Recorde d Elsewher e: No Locat ion: [facility] S ource: [facility] jonas: N Camilojoaquin ce ID: 0001 Matthew lable Time: 10:00:00 AM Sharla Corrigan bib, [facility] 10:40:55 Rubella screenin g status [id number] Completed 201711/24/2020 Encounte r for antenata l screenin g, unspecif ied;Jono rded Elsewher e: No Locat ion: [facility] S ource: EHR Custodial Operations Manager jonas: N Camiloti ce ID: 0001 Matthew lable Time: 04:15:00 PM Sharla Corrigan bib, [facility] 10:41:19 Antenata l screenin g for malforma tion Completed 201711/24/2020 Encounte r for antenata l screenin g for malforma tions;Re corded Elsewher e: No Locat ion: [facility] S ource: EHR Custodial Operations Manager jonas: N Camilojoaquin ce ID: 0001 Matthew lable Time: 02:30:00 PM Sharla Shekhar bib, [facility] 10:39:37 Normal pregnanc y in multigra karina [id number] 4106 Completed 201811/24/2020 Encounte r for suprvsn of normal pregnanc y, second trimeste r;Record ed Elsewher e: No Locat ion: [facility] S ource: EHR Custodial Operations Manager jonas: N Practi ce ID: 0001 Matthew lable Time: 01:30:00 PM Sharla mccartney, [facility] 10:40:48 Gestatio n period, 37 weeks [id number] Completed 201811/24/2020 37 weeks gestatio n of pregnanc y;Record ed Elsewher e: No Locat ion: [facility] S ource: EHR Custodial Operations Manager jonas: N Practi ce ID: 0001 Matthew lable Time: 03:30:00 PM Sharla mccartney, [facility] 10:40:13 Pregnanc y, childbir th and puerperi um finding Completed 201811/24/2020 Oth pregnanc y related conditio ns, third trimeste r;Practi ce ID: 0001 Sharla mccartney, [facility] 10:39:[address] Concept Completed 201811/24/2020 Decrease d movement s, third trimeste r, unsp;Pra ctice ID: 0001 Sharla mccartney, [facility] 10:41:29 Uterine scar from previous surgery affectin g pregnanc y [id number] Completed 201811/24/2020 Matern care for low transver se scar from prev del;Prac sugey ID: 0001 Sharla mccartney, [facility] 10:41:43 Gestatio n period, 39 weeks 54092215 Completed 201811/24/2020 39 weeks gestatio n of pregnanc y;Practi ce ID: 0001 Sharla Krishnamurthytz null, [facility] 10:40:15 Procedur e on genitour inary system Completed 201811/24/2020 Encounte r for surgical aftercar e followin g surgery on the genitour inary system;R ecorded Elsewher e: No Locat ion: [facility] S ource: [facility] jonas: N Viktoria ce ID: 0001 Matthew lable Time: 11:30:00 AM Sharla Corrigan null, [facility] 10:41:17 Postoper ative care Completed 201811/24/2020 Encounte r for surgical aftercar e followin g surgery on the genitour inary system;R ecorded Elsewher e: No Locat ion: [facility] S ource: [facility] jonas: N Viktoria ce ID: 0001 Matthew lable Time: 11:30:00 AM Sharla mccartney, [facility] 10:40:50 Non-prot einuric hyperten farhana of pregnanc y [id number] Completed 201811/24/2020 Gestatio nal hyperten farhana w/o signific ant proteinu patito, complica ting the postpart um period;R ecorded Elsewher e: No Locat ion: [facility] S ource: [facility] jonas: N Viktoria ce ID: 0001 Matthew lable Time: 05:15:00 PM Sharla Corrigan [facility], [facility] 10:40:44 Mass of right breast [id number] 488107 Completed 201802/25/2021 Lump in the right breast;R ecorded Elsewher e: No Locat ion: [facility] S ource: EHR Custodial Operations Manager jonas: N Viktoria ce ID: 0001 Matthew lable Time: 05:15:00 PM Sharla mccartney [facility] 04/30/202 1 15:03:06 Evaluati on finding [id number] Completed 201811/24/2020 Oth abn and inconclu sive findings on dx imaging of breast;R ecorded Elsewher e: No Locat ion: [facility] S ource: EHR Custodial Operations Manager jonas: N Practi ce ID: 0001 Matthew lable Time: 09:11:34 AM Sharla mccartney [facility] 1 10:39:46 Inflamma tory disorder of breast [id number] Completed 201811/24/2020 Mastitis ;Recorde d Elsewher e: No Locat ion: [facility] S ource: EHR Custodial Operations Manager jonas: N Practi ce ID: 0001 Matthew lable Time: 01:00:00 PM Sharla mccartney [facility] 1 10:40:38 Abnormal uterine bleeding [id number] 100 Completed 202002/25/2021 Sharla mccartney [facility] 1 15:02:59 Notes:Encounter for antenata l screening of mother Recorded Elsewhere: No Location: [facility] Source: EHR Chronic: N Practice ID: 0001 Billable Time: 08:30:00 AM Encounter for screening of mother Practice ID: 0001 Problem Notes None recorded. Procedures Surgical History Date Name Laterality Status Provider Name and Address Organization Details Recorded Time 12/20/19 24 Date of Last Pap Smear completed Stefani Gomez [facility] 12/31/2024 16:17:42 02/27/20 23 Orthopedic Surgery completed Erin Quick [facility] 12/20/2023 16:45:20 09/17/20 22 completed Erin Quick [facility] 12/20/2023 16:40:17 09/17/20 22 Date of Last Colonoscopy completed Erin Quick [facility] 12/20/2023 16:40:17 08/29/20 22 Colonoscopy completed Erin Abdelrahman [facility] 12/20/2023 16:45:02 01/09/20 19 section completed Sharla Corrigan [facility] 11/24/2020 10:47:29 12/22/19 16 section completed Sharla Shekhar [facility] 11/24/2020 10:47:36 Imaging Results None recorded. Procedure Notes None recorded. Medical Equipment None Reported. Allergies Allergen ID Allergen Name Allergen Category Reaction Reaction Severity Criticality Documentation Date Start Date Code Code System Note Provider Name and Address Organization Details Recorded Time 14190 amoxicill in medicatio n Not available Not available Not available 10/15/2020 723 RxNorm React ion: rash/ hives ; Comme nt: [facility]at [facility]; Not Available [facility] 14:24:39 Medications Name Sig Start Date Stop Date Status Note LastModified by Organization Details LastModified Time hc 50mg neomycin sulfate 15mg supp UNWRAP AND INSERT 1 SUPPOSIT ORY RECTALLY EVERY NIGHT AT BEDTIME X 2 WEEKS 12/31 completed Not Available Not Available Not Available diltiazem 2% ointment APPLY PEA SIZE AMOUNT [...] Elsewher e: No Locat ion: [facility] odify By: eugenio german DateTime : 01/08/20 02:01:42 PM Not Available Not Available Not Available tramadol 50 mg tablet TAKE 1 TABLET BY MOUTH EVERY 8 HOURS NEEDED FOR MODERATE TO SEVERE PAIN 12/20 completed Not Available Not Available Not Available ciclopiro x 8 % topical solution APPLY ONCE DAILY TO AFFECTED NAILS. REMOVE ONCE A WEEK WITH ICELANDIC REMOVER 12/31 completed Not Available Not Available [...] Elsewher e: No Locat ion: [facility] odify By: whitney chaney DateTime : 01/10/20 [...] Elsewher e: No Locat ion: [facility] odify By: [email or web address] Encounte r DateTime : 04/10/20 17 09:11:54 AM Not Available Not Available Not Available One Daily 27 mg iron-800 mcg tablet take 1 tablet by oral route every day 11/24 completed Prescrib [facility] e: Yes Loca tion: [facility] odkerry By: [email or web address] trick En counter DateTime : 06/24/20 15 08:30:00 AM Not Available Not Available Not Available Vitals Date Recorded Body height Body mass index (BMI) Body weight Systolic And Diastolic Systolic And Diastolic Provider Name and Address Organization Details Last Updated DateTime 12/07/2021 165.1 cm 29.6 kg/m2 70888.44 g 151/93 mm[Hg] 160/90 mm[Hg] Sharla Corrigan [facility] 17:39:53 Date Recorded Systolic And Diastolic Provider Name and Address Organization Details Last Updated DateTime 12/20/2023 124/76 mm[Hg] Erika Bravo, [facility]- [address], [place], [address], [facility] 12/20/2023 17:30:03 Date Recorded Body height Body mass index (BMI) Body weight Provider Name and Address Organization Details Last Updated DateTime 12/20/2023 165.1 cm 29.5 kg/m2 74426.29 g Erin Quick [facility] 12/20/2023 16:31:05 Date Recorded Body height Body mass index (BMI) Body weight Systolic And Diastolic Provider Name and Address Organization Details Last Updated DateTime 12/31/2024 165.1 cm 29.3 kg/m2 67520.26 g 135/84 mm[Hg] Stefani Gomez [facility] 12/31/2024 16:22:29 Date Recorded Body height Body mass index (BMI) Body weight Systolic And Diastolic Provider Name and Address Organization Details Last Updated DateTime 02/25/2021 165.1 cm 29.8 kg/m2 72124.03 g 145/95 mm[Hg] Sharla Corrigan [facility] 02/25/2021 15:02:54 Social History Question Answer Notes LastModified by Organizat ion Details LastModified Time Tobacco Smoking Status Never Smoker Sharla Corrigan bib, [facility] 12/07/2021 17:08:37 If You Are , What Was Your Level Of Alcohol Consumption Prior To ? None [email or web address] Information not available 12/07/2021 How Many Years Have You Consumed Alcohol? 7 [email or web address] Information not available 12/07/2021 Are You Blind Or Do You Have Difficulty Seeing? No [email or web address] Information n ot available 02/25/2021 What Is Your Level Of Caffeine Consumption? Moderate [email or web address] Information not available 11/24/2020 How Much Tobacco Do You Chew? None [email or web address] Information not available 12/07/2021 In The 14 Days Before Symptom Onset, Have You Had Close Contact With A Laboratory-confirm ed COVID-19 While That Case Was Ill? No [email or web address] Information n ot available 02/25/2021 In The 14 Days Before Symptom Onset, Have You Had Close Contact With A Person Who Is Under Investigation For COVID-19 While That Person Was Ill? No [email or web address] Information not available 02/25/2021 Have You Been To An Area Known To Be High Risk For COVID-19? No [email or web address] Information not available 02/25/2021 Are You Deaf Or Do You Have Serious Difficulty Hearing? No [email or web address] Information not available 02/25/2021 What Type Of Diet Are You Following? REGULAR [email or web address] Information n ot available 02/25/2021 What Is The Highest Grade Or Level Of School You Have Completed Or The Highest Degree You Have Received? [id number] [email or web address] Information not available 12/07/2021 How Many Days Of Moderate To Strenuous Exercise, Like A Brisk Walk, Did You Do In The Last 7 Days? 3 [email or web address] Information not available 12/07/2021 On Those Days That You Engage In Moderate To Strenuous Exercise, How Many Minutes, On Average, Do You Exercise? 90 [email or web address] Information not available 12/07/2021 Are There Any Guns Present In Your Home? Yes [email or web address] Information not available 12/07/2021 Have You Ever Been Counseled For Unhealthy Alcohol Use? No [email or web address] Information not available 12/07/2021 Do You Use Protection During Sex? No [email or web address] Information not available 12/07/2021 Do You Use Your Seat Belt Or Car Seat Routinely? Yes [email or web address] Information not available 02/25/2021 Do You Have Smoke And Carbon Monoxide Detectors In Your Home? Yes [email or web address] Information not available 02/25/2021 How Much Tobacco Do You Smoke? No Information not available 12/07/2021 Do You Use Sunscreen Routinely? Yes [email or web address] Information not available 02/25/2021 Has Tobacco Cessation Counseling Been Provided? No Information not available 12/07/2021 Have You Used IV Drugs? No Information not available 12/07/2021 Do You Have Difficulty Walking Or Climbing Stairs? No [email or web address] Information not available 12/07/2021 Sex: Unknown Functional Status Question Answer Note LastModified by Organizat ion Details LastModified Time Do you use any illicit or recreational drugs? No [email or web address] Information not available 11/24/2020 Do you or have you ever used any other forms of tobacco or nicotine? No [email or web address] Information not available 12/07/2021 What is your level of alcohol consumption? Occasional [email or web address] Information not available 11/24/2020 Are you able to walk? YESWOREST [email or web address] Information not available 02/25/2021 Are you able to care for yourself? 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 No [email or web address] Information not available 12/07/2021 What is your exercise level? Moderate [email or web address] Information not available 11/24/2020 Mental Status Question Answer Note LastModified by Organization D etails LastModified Time Do you feel stressed (tense, restless, nervous, or anxious, or unable to sleep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
[2025-05-27 20:07] LABS: I006-IgE Cockroach, German <0.10 kU/L (Class 0); T006-IgE Cedar, Mountain <0.10 kU/L (Class 0); T007-IgE Oak, White <0.10 kU/L (Class 0); T008-IgE Elm, American <0.10 kU/L (Class 0); T015-IgE Ash, White <0.10 kU/L (Class 0); T022-IgE Pecan, Hickory <0.10 kU/L (Class 0); W001-IgE Ragweed, Short <0.10 kU/L (Class 0); W011-IgE Thistle, Russian <0.10 kU/L (Class 0); W014-IgE Pigweed, Common <0.10 kU/L (Class 0); W016-IgE Rough Marshelder <0.10 kU/L (Class 0)
== END 2025-05-21 12:56 | disposition home or self-care (01) ==
LOC: ANHBWCLAB 12:56
PROVIDERS: PCP Nurse Practitioner Adult Health; Visit Provider Nurse Practitioner Adult Health
DX: L50.9 Urticaria, unspecified (principal)
CPT/HCPCS: 82785; 86003

== ENCOUNTER 2025-10-20 10:00 | Outpatient (CLI) | payer OTHER, SELFPAY ==
--- OUTSIDE RECORDS SUMMARY | 2025-10-20 10:28 | XMS_ITS | Clinical Summary ---
Author Organization [facility] Address [address] [place] [address] Phone Care Team Providers Care Motorsports Technician Name Role Phone Hai Zaman MD Primary Care Provider [phone] Allergies Active Allergy Reactions Criticality Noted Date [...] (CCS) 2023 HPV/Cotest 2023 Influenza Immunization (#1) 2025 SARS-COV-2 Immunization ( season) 2025 Respiratory Syncytial Virus (RSV) Immunization (Adult) (1 - 1-dose 75+ series) 02/14/2068 Hepatitis B Immunization Completed 993, 1993, 1993 DTaP/Tdap/Td Immunization Discontinued 03/28/2007 TdaP Immunization Completed 03/28/2007 Varicella Immunization Completed 7, 04/24/1995 Human Papillomavirus (HPV) Immunization Completed 10/01/2007, 05/28/2007, 03/28/2007 Meningococcal Immunization (ACWY) Aged Out 10/01/2007 No longer eligible based on patient's age to complete this topic Pneumococcal Immunization Combined Aged Out No longer eligible based on patient's age to complete this topic Rotavirus Immunization Aged Out No lo nger eligible based on patient's age to complete this topic Medical Devices Implanted Type Area Barrel Loader And Cleaner Device Identifier Shelf Expiration Date Model / Serial / Lot [employer] Suture Fiberstitch Polyester Meniscal 24deg Low-Profile Ergonomic Handle - [id number] Implanted:Qty: 1 on 03/15/2023 by Crescencio Blas MD at [facility] IMPLANT Right: Knee [employer] 05/28/2027 AR-4570-24 / AR-[id number] / [id number] Fiberstitch Implanted:Qty: 1 on 03/15/2023 by Crescencio Blas MD at [facility] Right: Knee [employer] 01/26/2027 AR-4570 / AR-[id number] / [id number] Insurance MEDICAID [place] Care Teams Motorsports Technician Relationship Specialty Start Date End Date Hai Zaman MD PCP - General Family Medicine 05/08/22
--- OUTSIDE RECORDS SUMMARY | 2025-10-20 10:28 | XMS_ITS | Clinical Summary ---
Author Organization [facility] Address [address] [place] [address] Phone Care Team Providers Care Job Compositor Name Role Phone Malkarma Serena MARGY Primary Care Provider [phone] Negar Carmona Unavailable [phone] Ander Sadler MD Unavailable + Allergies Active [...] HISTORY Rectal bleeding/constipation: EGD -- Adriano @ [facility] COLONOSCOPY 10/29/2021 - 10/28/2022 FLEXIBLE SIGMOIDOSCOPY 02/27/2024 [...] on file Legal Sex Female 1:03 PM TIER OVER Gender Identity Not on file Sexual Orientation [...] age to complete this topic Insurance [address] [place] [id number] [facility] CHOICE PLUS [facility] PLUS Care Teams Job Compositor Relationship Specialty Start Date End Date Serena Gallegos NP [facility] [place] [address] PCP - General Nurse Practitioner 02/20/24 Negar Carmona PA [address] [place] [id number] [place] [address] Physician Epidemiologist Colon and Rectal Surgery 02/27/24 Ander Sadler MD [address] [facility] [address] [place] [address] Referring Physician Gastroenterology 02/27/24
[2025-10-20 18:45] LABS: Alanine Aminotransferase 17 U/L (6-35); Albumin Level 4.7 g/dL (3.5-5.1); Alkaline Phosphatase 65 U/L (38-126); Anion Gap 8 mmol/L (4-12); Aspartate Amino Transferase 70 U/L (14-36); Bilirubin,Total 1.0 mg/dL (0.2-1.3); Blood Urea Nitrogen 12 mg/dL (7-17); Calcium 9.7 mg/dL (8.4-10.2); Carbon Dioxide 25 mmol/L (22-30); Chloride 105 mmol/L (98-107); Estimated Glomerular Filt Rate > 60; Glucose 88 mg/dL (65-110); Potassium 5.0 mmol/L (3.4-5.0); Sodium 138 mmol/L (137-145); Total Protein 7.8 g/dL (6.3-8.2)
== END 2025-10-20 10:01 | disposition home or self-care (01) ==
PROVIDERS: PCP Nurse Practitioner Adult Health; Visit Provider Nurse Practitioner Adult Health
DX: I10 Essential (primary) hypertension (principal)
CPT/HCPCS: 36415; 80053